=== PATIENT | female | born 1945 | race Caucasian/White ===

== ENCOUNTER 2019-10-15 21:22 | Observation (INO) | payer MEDICARE, MEDICAID, SELFPAY ==
[2019-10-15 21:33] VITALS: BP 147/85; PULSE 76; RESP 18; TEMP 36.9; O2SAT 98; BMI 25.4
--- NOTE | 2019-10-15 22:04 | PC.NURSE ---
PATIENT STATES THAT SHE HAS HAD CENTRAL CHEST PAIN, ABDOMINAL PAIN, AND NAUSEA WITH DIARRHEA SINCE YESTERDAY. PATIENT STATES THAT SHE TOOK ONE NITROGLYCERIN PILL TODAY IN THE AFTERNOON AND IT MADE THE CHEST WENT AWAY WITH THAT BUT IT HAS SINCE RETURNED.PATIENT STATES SHE HAS BEEN IN THE ER IN [place] FOR CHEST PAIN SYMPTOMS TWO MONTHS AGO.
[2019-10-15 22:06] VITALS: BP 122/74; PULSE 75; RESP 17; O2SAT 96
--- NOTE | 2019-10-15 22:07 | ED_ITS ---
Entered by Latoya Coelho, acting as scribe for Ben Stallworth DO Oct 15, 2019 21:22 HPI - Abdominal Pain General: Chief Complaint: Abdominal Pain Stated Complaint: cp/back pain/d Time Seen by Provider: 10/15/19 22:00 Source: patient and family Mode of arrival: ambulatory Limitations: no limitations History of Present Illness: HPI narrative: 74 yo female presents with abdomen pain and chest pressure. pt states this started 3 days ago. pt states she has had nausea and vomiting. pt has had a hx of a heart attack. pt denies any other symptoms at this time. MD elicited complaint: abdominal pain and other (chest , N/V/D) Pertinent past history: myocardial infarction Onset (ago): day(s) (today) Pain Consistency: constant Location: Chest and LUQ Quality: sharp Radiation: LUQ and LLQ Exacerbating factors: nothing Relieving factors: nothing Associated Symptoms: Reports chills, nausea and vomiting; Denies dysuria, fever(s) and hematuria Review of Systems General: Reports: 10 or more systems reviewed and unremarkable except in HPI and below Const: Reports: chills; Denies: fever Eyes: Denies: change in vision or blurry vision ENMT: Denies: painful swallowing, swelling of lips/tongue, post nasal drip or facial/sinus pain Resp: Reports: shortness of breath and non-productive cough; Denies: productive cough or wheezing GI: Reports: abdominal pain, nausea and vomiting : Denies: painful urination, urinary frequency or blood in urine Musc: Reports: back pain; Denies: neck pain, redness or joint warmth Skin/Breast: Denies: rash, itching or redness Neuro: Reports: confusion; Denies: headache, dizziness or vertigo Psych: Denies: anxiety PFSH ED PFSH: Medical History Anemia Breast cancer, right Depression Hypertension Syncope Surgical History H/O mastectomy History of appendectomy Family History (Updated 10/16/19 @ 02:10 by Mallory Gray MD) Sister Cancer Sister had breast cancer Social History (Updated 10/16/19 @ 03:55 by Mallory Gray MD) Smoking and tobacco status: former smoker Quit status (tobacco): has quit using tobacco Year quit tobacco: 12 to 15 years ago Alcohol intake: never Substance/Drug Use: never Household members: family Marital status: / Physical Exam Const: GENERAL APPEARANCE: well developed ORIENTATION/CONSCIOUSNESS: Yes oriented to person, Yes oriented to place and Yes oriented to time HENMT: COMMON NORMALS: normocephalic, external ears normal and external nose normal HEAD & SCALP: normocephalic; no scalp tenderness FACE & SINUS: normal facial exam NOSE: external nose normal and no nasal discharge EXTERNAL EAR: Yes external ears normal THROAT: posterior oropharynx normal; no peritonsillar mass Eye: COMMON NORMALS: PERRL, EOMs intact bilaterally and conjunctivae normal EYELID: eyelids normal CONJUNCTIVA: Yes conjunctivae normal PUPIL: Yes PERRL Neck/C-Spine: COMMON NORMALS: full ROM GENERAL: No tracheal deviation CERVICAL SPINE: Yes normal cervical lordosis and No cervical spine tenderness Chest: COMMONS NORMALS: inspection of chest normal CHEST: No tenderness Resp: COMMON NORMALS: clear to auscultation bilaterally EFFORT & INSPECTION: No tachypneic, No respiratory distress, No retractions, No uses accessory muscles and No tracheal deviation AUSCULTATION: clear to auscultation bilaterally, no rhonchi, no wheezes and diminished lung sounds GI: INSPECTION: Yes abdominal distension AUSCULTATION: No hyperactive bowel sounds and No hypoactive bowel sounds PALPATION: Yes tender Details: LLQ and LUQ PERCUSSION: no dullness to percussion and no tympanic to percussion : COMMON NORMALS: Yes no CVA tenderness BLADDER/KIDNEY EXAM: Yes no CVA tenderness Back/Pelvis: COMMON NORMALS: no CVA tenderness Neuro: SENSORIUM/ORIENTATION: Yes oriented to person, Yes oriented to place and Yes oriented to time Psych: COMMON NORMALS: mental status grossly normal Skin: COMMON NORMALS: no rashes or lesions noted GENERAL SKIN EXAM: no rashes or lesions noted Course Consultations: Consultation #1: lynn Vital Signs: Vital signs: Vital Signs Temperature 97.8 F 10/16/19 03:52 Pulse Rate 65 10/16/19 03:52 Respiratory Rate 18 10/16/19 03:52 Blood Pressure 129/77 10/16/19 03:52 Pulse Oximetry 98 10/16/19 03:52 MDM - Abdominal Pain MDM Narrative: Medical decision making narrative: 74-year-old lady presenting with chest pain, belly pain, back pain, vomiting and diarrhea. She is tender in the epigastrium and left abdomen. Her white blood cell count is low at 3.3. Her BUN and creatinine are elevated. She appears dry clinically. Her EKG showed some nonacute appearing ST elevation changes. Her troponin did not change at [address] shows gastric wall thickening, some fecalization in the small bowel. She will be observed for IV hydration for generalized weakness, dehydration, and gastritis. Lab Data: Labs: Lab Results 10/15/19 10/15/19 10/15/19 Range/Units 21:45 22:22 22:22 WBC 3.3 L (4.0-10.0) 10^3/ uL RBC 3.24 L (4.1-5.3) 10^6/u L Hgb 10.0 L (11.5-15.3) g/dL Hct 31.4 L (37.0-47.0) % MCV 96.9 (81-99) fL MCH 30.9 (28.0-34.0) pg MCHC 31.8 (30.0-36.0) g/dL RDW 12.3 (12.1-15.1) % Plt Count 145 (130-400) 10^3/c mm MPV 11.6 H (7.4-10.4) fL Neut % (Auto) 49.0 % Lymph % (Auto) 38.1 % Dickens % (Auto) 10.8 % Eos % (Auto) 1.5 % Baso % (Auto) 0.6 % Neut # (Auto) 1.6 L (1.8-7.7) 10^3/u L Lymph # (Auto) 1.3 (0.8-4.8) 10^3/u L Dickens # (Auto) 0.4 (0.2-0.9) 10^3/u L Eos # (Auto) 0.1 (0.0-0.8) 10^3/u L Baso # (Auto) 0.0 (0.0-0.1) 10^3/u L Nucleated RBC % (a uto) 0 % Nucleated RBCs # 0.0 /100WBC PT 13.60 H (10.5-13.3) SECO NDS INR 1.00 (0.8-1.2) APTT 28.2 (23.9-36.7) SECO NDS Sodium (136-145) mmol/L Potassium (3.5-5.1) mmol/L Chloride (98-107) mmol/L Carbon Dioxide (22-29) mmol/L Anion Gap (5-19) BUN (8-23) mg/dL Creatinine (0.5-0.9) mg/dL Glucose (65-115) mg/dL Calcium (8.5-10.5) mg/dL Total Bilirubin (0.15-1.2) mg/dL AST (0-32) U/L ALT (0-33) U/L Alkaline Phosphata se (35-105) IU/L Troponin T Baselin e (0-10) ng/mL Troponin T 120 Min osage (0-10) ng/mL Delta Troponin T (0-10) ABS# NT-Pro-B Natriuret Pep (0-125) pg/mL Total Protein (6.6-8.7) g/dL Albumin (3.5-5.2) g/dL Globulin (1.3-4.6) g/dL Lipase (13-60) U/L Urine Color (Yellow) Urine Appearance (CLEAR) Urine pH (5-7) Ur Specific Gravit y (1.005-1.030) Urine Protein (Negative) Urine Glucose (UA) (Normal) Urine Ketones (Negative) Urine Blood (Negative) Urine Nitrate (Negative) Urine Bilirubin (NEGATIVE) Urine Urobilinogen (Negative) mg/dL Ur Leukocyte Adela ase (Negative) Urine RBC (0-2) /hpf Urine WBC (0-5) /hpf Ur Squamous Epith Cells (0-5) Urine Bacteria (NONE) Influenza Type A A g Negative (Negative) POC Influenza B Ag Negative (Negative) 10/15/19 10/15/19 10/15/19 Range/Units 22:22 22:22 23:24 WBC (4.0-10.0) 10^3/ uL RBC (4.1-5.3) 10^6/u L Hgb (11.5-15.3) g/dL Hct (37.0-47.0) % MCV (81-99) fL MCH (28.0-34.0) pg MCHC (30.0-36.0) g/dL RDW (12.1-15.1) % Plt Count (130-400) 10^3/c mm MPV (7.4-10.4) fL Neut % (Auto) % Lymph % (Auto) % Dickens % (Auto) % Eos % (Auto) % Baso % (Auto) % Neut # (Auto) (1.8-7.7) 10^3/u L Lymph # (Auto) (0.8-4.8) 10^3/u L Dickens # (Auto) (0.2-0.9) 10^3/u L Eos # (Auto) (0.0-0.8) 10^3/u L Baso # (Auto) (0.0-0.1) 10^3/u L Nucleated RBC % (a uto) % Nucleated RBCs # /100WBC PT (10.5-13.3) SECO NDS INR (0.8-1.2) APTT (23.9-36.7) SECO NDS Sodium 141 (136-145) mmol/L Potassium 4.5 (3.5-5.1) mmol/L Chloride 103 (98-107) mmol/L Carbon Dioxide 25 (22-29) mmol/L Anion Gap 17.5 (5-19) BUN 37 H (8-23) mg/dL Creatinine 1.6 H (0.5-0.9) mg/dL Glucose 96 (65-115) mg/dL Calcium 10.0 (8.5-10.5) mg/dL Total Bilirubin 0.2 (0.15-1.2) mg/dL AST 35 H (0-32) U/L ALT 13 (0-33) U/L Alkaline Phosphata se 103 (35-105) IU/L Troponin T Baselin e 11 H (0-10) ng/mL Troponin T 120 Min osage (0-10) ng/mL Delta Troponin T (0-10) ABS# NT-Pro-B Natriuret Pep 552 H (0-125) pg/mL Total Protein 7.5 (6.6-8.7) g/dL Albumin 4.1 (3.5-5.2) g/dL Globulin 3.4 (1.3-4.6) g/dL Lipase 22 (13-60) U/L Urine Color Yellow (Yellow) Urine Appearance Clear (CLEAR) Urine pH 6 (5-7) Ur Specific Gravit y 1.020 (1.005-1.030) Urine Protein Neg (Negative) Urine Glucose (UA) Norm (Normal) Urine Ketones Negative (Negative) Urine Blood Neg (Negative) Urine Nitrate Negative (Negative) Urine Bilirubin Neg (NEGATIVE) Urine Urobilinogen Norm (Negative) mg/dL Ur Leukocyte Adela ase 1+ H (Negative) Urine RBC 0-4 H (0-2) /hpf Urine WBC 5-10 H (0-5) /hpf Ur Squamous Epith Cells 0-4 H (0-5) Urine Bacteria Trace (NONE) Influenza Type A A g (Negative) POC Influenza B Ag (Negative) 10/16/19 Range/Units 00:14 WBC (4.0-10.0) 10^3/ uL RBC (4.1-5.3) 10^6/u L Hgb (11.5-15.3) g/dL Hct (37.0-47.0) % MCV (81-99) fL MCH (28.0-34.0) pg MCHC (30.0-36.0) g/dL RDW (12.1-15.1) % Plt Count (130-400) 10^3/c mm MPV (7.4-10.4) fL Neut % (Auto) % Lymph % (Auto) % Dickens % (Auto) % Eos % (Auto) % Baso % (Auto) % Neut # (Auto) (1.8-7.7) 10^3/u L Lymph # (Auto) (0.8-4.8) 10^3/u L Dickens # (Auto) (0.2-0.9) 10^3/u L Eos # (Auto) (0.0-0.8) 10^3/u L Baso # (Auto) (0.0-0.1) 10^3/u L Nucleated RBC % (a uto) % Nucleated RBCs # /100WBC PT (10.5-13.3) SECO NDS INR (0.8-1.2) APTT (23.9-36.7) SECO NDS Sodium (136-145) mmol/L Potassium (3.5-5.1) mmol/L Chloride (98-107) mmol/L Carbon Dioxide (22-29) mmol/L Anion Gap (5-19) BUN (8-23) mg/dL Creatinine (0.5-0.9) mg/dL Glucose (65-115) mg/dL Calcium (8.5-10.5) mg/dL Total Bilirubin (0.15-1.2) mg/dL AST (0-32) U/L ALT (0-33) U/L Alkaline Phosphata se (35-105) IU/L Troponin T Baselin e (0-10) ng/mL Troponin T 120 Min osage 9.31 (0-10) ng/mL Delta Troponin T -1.69 L (0-10) ABS# NT-Pro-B Natriuret Pep (0-125) pg/mL Total Protein (6.6-8.7) g/dL Albumin (3.5-5.2) g/dL Globulin (1.3-4.6) g/dL Lipase (13-60) U/L Urine Color (Yellow) Urine Appearance (CLEAR) Urine pH (5-7) Ur Specific Gravit y (1.005-1.030) Urine Protein (Negative) Urine Glucose (UA) (Normal) Urine Ketones (Negative) Urine Blood (Negative) Urine Nitrate (Negative) Urine Bilirubin (NEGATIVE) Urine Urobilinogen (Negative) mg/dL Ur Leukocyte Adela ase (Negative) Urine RBC (0-2) /hpf Urine WBC (0-5) /hpf Ur Squamous Epith Cells (0-5) Urine Bacteria (NONE) Influenza Type A A g (Negative) POC Influenza B Ag (Negative) Discharge Plan Discharge Admit Provider: Mallory Gray Discharge Date/Time: 10/16/19 03:08 Coding Level of Care Code ED Application Dba for g Fwd Exam Comprehensive The documentation recorded by the Meliton shafer Bridget Annette, accurately reflects the service I personally performed and the decisions made by Basim vazquez Jeremy John, DO Oct 15, 2019 21:22
--- NOTE | 2019-10-15 22:13 | ECG_ITS ---
Measurements Intervals [place] Rate: 72 P: 49 TN: 144 QRS: -17 QRSD: 112 T: 117 QT: 386 QTc: 424 SINUS RHYTHM MODERATE VOLTAGE CRITERIA FOR LVH, CONSIDER NORMAL VARIANT [MEETS CRITERIA IN ONE OF: OF: R(aVL), S(V1), R(V5), R(V5/V6)+S(V1)] POSSIBLE ANTEROSEPTAL MYOCARDIAL INFARCTION [30 ms Q WAVE IN V1-V4], OF IND INDETERMINATE AGE.MODERATE T-WAVE ABNORMALITY, CONSIDER LATERAL ISCHEMIA [-0.1+ mV T WAVE IN I/ I/aVL/V5/V6] Compared to ECG 08/25/2017 19:05:26 T-wave abnormality now presentSinus bradycardia no longer present ST (T wave) deviation no longer present Myocardial infarct finding still present Possible ischemia still present Electronically Signed On 10-16-2019 19:58:57 VETERINARY TECHNOLOGIST by Myrna Hsieh M.D. [id number]
--- NOTE | 2019-10-15 22:13 | XRR_ITS ---
PROCEDURE INFORMATION: Exam: XR Chest, 1 View Exam date and time: 10/15/2019 10:28 PM Age: 74 years old Clinical indication: Chest pain; Type not specified; Additional info: Cp TECHNIQUE: Imaging protocol: XR of the chest Views: 1 view. COMPARISON: CR Chest 1 [place] [id number] 04/15/2019 11:35 PM FINDINGS: Lungs: Unremarkable. No consolidation. Pleural space: Unremarkable. No pleural effusion. No pneumothorax. Heart/Mediastinum: Unremarkable. No cardiomegaly. Bones/joints: Old right rib fractures XR/XR chest 1V portable [id number] IMPRESSION: Stable chest. No acute findings.
--- NOTE | 2019-10-15 22:13 | CTR_ITS ---
PROCEDURE INFORMATION: Exam: CT Abdomen And Pelvis With Contrast Exam date and time: 10/15/2019 10:23 PM Age: 74 years old Clinical indication: Abdominal pain; Generalized; Prior surgery; Surgery date: 6+ months; Surgery type: Appy; Patient HX: C/O abd pain w nausea and diarrhea x 32 days; Additional info: Llq pain TECHNIQUE: Imaging protocol: Computed tomography of the abdomen and pelvis with intravenous contrast. Total DLP: 588.32 mGy-cm Radiation optimization: All CT scans at this facility use at least one of these dose optimization techniques: automated exposure control; mA and/or kV adjustment per patient size (includes targeted exams where dose is matched to clinical indication); or iterative reconstruction. Contrast material: VISI 320; Contrast volume: 95 ml; Contrast route: 20G; COMPARISON: CT abdomen pelvis w con* [id number] 01/30/2017 3:08 AM FINDINGS: Lungs: There is subpleural atelectasis of the dependent portions of the lungs. Heart: The heart is enlarged. Mediastinum: A small hiatal hernia is present. Liver: Unremarkable.No mass. Gallbladder and bile ducts: The gallbladder is contracted/decompressed. Pancreas: Normal. No ductal dilation. Spleen: There is mild nonspecific splenomegaly. Adrenals: Normal. No mass. Kidneys and ureters: There is no evidence of hydronephrosis. There is no evidence of renal calcifications. There is unchanged atrophy of the right kidney. Stomach and bowel: Moderate diverticulosis is present in the distal colon. There is no evidence of colitis/diverticulitis. There is a mild small bowel feces sign of the distal small bowel compatible with stasis. No bowel obstruction. No definite wall thickening or inflammatory changes. The gastric wall is mildly thickened but is also partially collapsed in the appearance is compatible with lack of distension. Appendix: No evidence of appendicitis. Intraperitoneal space: Unremarkable. No free air. No significant fluid collection. Vasculature: The aorta demonstrates mild atherosclerotic calcification. Lymph nodes: Unremarkable.No enlarged lymph nodes. Bladder: Unremarkable as visualized. Reproductive: Unremarkable as visualized. Bones/joints: Osteopenia and moderate degenerative changes in the spine are noted. Multiple vacuum discs are noted. No acute fracture or subluxation. There is dextroscoliosis. Soft tissues: Unremarkable. CT/CT abdomen pelvis w con* [id number] IMPRESSION: No acute abnormality or inflammatory changes. There is small bowel feces sign in the distal small bowel which indicates stasis. No bowel obstruction. Radiation Dose CTDIVOL = (mGy): DLP = 588.32 (mGy-cm)
[2019-10-15 22:29] LABS: Influenza A by IFA Negative (Negative); Influenza B by IFA Negative (Negative)
[2019-10-15] MEDS: sodium chloride 0.9% 1,000 ML 999 ML IV (22:30)
[2019-10-15 22:32] VITALS: BP 137/80; PULSE 68; RESP 17; O2SAT 96
[2019-10-15 22:40] LABS: Basophils % 0.6 %; Eosinophils # 0.1 10^3/uL (0.0-0.8); Eosinophils % 1.5 %; Hematocrit 31.4 % (37.0-47.0); Lymphocytes # 1.3 10^3/uL (0.8-4.8); Lymphocytes % 38.1 %; Mean Corpuscular HGB Conc 31.8 g/dL (30.0-36.0); Mean Corpuscular Hemoglobin 30.9 pg (28.0-34.0); Mean Corpuscular Volume 96.9 fL (81-99); Mean Platelet Volume 11.6 fL (7.4-10.4); Monocytes # 0.4 10^3/uL (0.2-0.9); Monocytes % 10.8 %; Neutrophils # 1.6 10^3/uL (1.8-7.7); Nucleated Red Blood Cells % 0 %; Platelet Count 145 10^3/cmm (130-400); Red Blood Count 3.24 10^6/uL (4.1-5.3); Red Cell Distribution Width 12.3 % (12.1-15.1); White Blood Count 3.3 10^3/uL (4.0-10.0)
[2019-10-15 22:55] LABS: Partial Thromboplastin Time 28.2 SECONDS (23.9-36.7)
[2019-10-15 23:11] LABS: Troponin(5th) Baseline 11 ng/mL (0-10)
[2019-10-15] MEDS: ondansetron 2 mg/ML SDV 2 mL 4 MG IVP (23:19)
[2019-10-15 23:20] VITALS: RESP 16; O2SAT 97
[2019-10-15 23:20] LABS: Alanine Aminotransferase 13 U/L (0-33); Albumin Level 4.1 g/dL (3.5-5.2); Alkaline Phosphatase 103 IU/L (35-105); Anion Gap 17.5 (5-19); Aspartate Amino Transferase 35 U/L (0-32); Blood Urea Nitrogen 37 mg/dL (8-23); Carbon Dioxide 25 mmol/L (22-29); Chloride 103 mmol/L (98-107); Globulin 3.4 g/dL (1.3-4.6); Glucose 96 mg/dL (65-115); NT Pro B Type Natriuretic Pept 552 pg/mL (0-125); Potassium 4.5 mmol/L (3.5-5.1); Sodium 141 mmol/L (136-145); Total Bilirubin 0.2 mg/dL (0.15-1.2); Total Protein 7.5 g/dL (6.6-8.7)
[2019-10-15] MEDS: morphine 4 mg/mL SDV 1 mL IVP (23:20)
[2019-10-15 23:23] VITALS: BP 175/99; PULSE 78; RESP 16; O2SAT 95
[2019-10-15] MEDS: iodixanol 320 mg/mL 100mL Btl IV (23:30)
[2019-10-15 23:49] LABS: Lipase 22 U/L (13-60)
[2019-10-15 23:50] VITALS: BP 165/93; PULSE 72; RESP 16; O2SAT 95
[2019-10-16] VITALS (15 sets, daily range): BP systolic 113–165; BP diastolic 68–85; PULSE 60–82; RESP 12–18; TEMP 36.6–37; O2SAT 93–99
[2019-10-16 00:02] LABS: Add Urine Microscopic? YES; Bilirubin Urine Neg (NEGATIVE); Blood Urine Neg (Negative); Glucose Urine UA Norm (Normal); Ketones Urine Negative (Negative); Leukocyte Esterase Urine 1+ (Negative); Nitrate Urine Negative (Negative); Protein Urine Neg (Negative); Urine Appearance Clear (CLEAR); Urine Color Yellow (Yellow); Urobilinogen Urine Norm (Negative); pH Urine 6 (5-7)
[2019-10-16 00:03] LABS: Bacteria Urine TRACE; RBC Urine 0-4 /hpf (0-2); Squamous Epithelial Cell Urine 0-4 (0-5)
--- NOTE | 2019-10-16 00:13 | ECG_ITS ---
Measurements Intervals [place] Rate: 71 P: 51 NM: 161 QRS: -5 QRSD: 114 T: 110 QT: 409 QTc: 447 SINUS RHYTHM LEFT VENTRICULAR HYPERTROPHY AND ST-T CHANGE [VOLTAGE CRITERIA PLUS ST/T ABNO ABNORMALITY] POSSIBLE ANTERIOR MYOCARDIAL INFARCTION , OF INDETERMINATE AGE [30 ms Q WAVE IN V3/V4, OR R < 0.2 mV IN V4] INTERPRETATION BASED ON A DEFAULT AGE OF 40 YEARS Compared to ECG 08/25/2017 19:05:26 Left ventricular hypertrophy now present Sinus bradycardia no longer present Possible ischemia no longer present ST (T wave) deviation still present Myocardial infarct finding still present Electronically Signed On 10-16-2019 20:04:38 OUTBOUND SALES CONSULTANT by Myrna Hsieh M.D. [id number]
[2019-10-16 00:42] LABS: Troponin 5 2HR 9.31 ng/mL (0-10)
[2019-10-16 00:52] LABS: Troponin 5 2HR Delta -1.69 ABS# (0-10)
--- NOTE | 2019-10-16 02:07 | PM.HP ---
Providers/Chief Complaint Primary Care Provider: EMELI Luke Chief Complaint: cp/back pain/d History of Present Illness Negin Lee is a 74 year old female who has history of hypertension, right breast cancer, presented to the emergency department with chief complaint of left-sided chest discomfort. Patient is stating that her symptoms started yesterday at rest which were substernal chest discomfort on the left side which was radiating towards her left arm, it lasted for more than 5 minutes and got relieved with use of nitroglycerin sublingually. Today she experienced similar symptoms and she took another dose of sublingual nitroglycerin which relieved her symptoms hence she decided to come to ER for further evaluation. She also experienced 4-5 episodes of emesis bilious in nature, associated with diarrhea without any fever, chills, neurological deficit. No recent sick contacts, traveling etc. Patient is not aware of her medications. She is independent for daily activities, she is denying orthopnea, PND. Diagnostics in ER were unremarkable, nonsignificant troponin, EKG did not show any acute ischemic changes, patient was admitted for fluid resuscitation overnight, 6-hour troponin is pending When I evaluated the patient she was symptom-free, asymptomatic, blood pressure 157/70, heart rate 80, patient was lying comfortable without any active discomfort Her chest pain was reproducible on left side Review of Systems Const: Reports: body aches; Denies: fever or chills Eyes: Denies: change in vision ENMT: Denies: throat pain Card: Reports: chest pain; Denies: palpitations, irregular heart rhythm, edema, swelling of feet/ankles, lightheadedness or syncope Resp: Denies: shortness of breath or non-productive cough GI: Reports: abdominal pain, nausea and vomiting; Denies: vomiting blood, coffee grounds in vomit, difficulty swallowing, heartburn/indigestion or feeling full early : Denies: flank pain or difficulty urinating Musc: Denies: neck pain Skin/Breast: Denies: rash Neuro: Denies: headache Psych: Reports: anxiety Endo: Denies: excessive urination Sylvester/Lymph: Denies: easy bruising All/Imm: Denies: hives Medications/Allergies Home Medications Medication Instructions Recorded Confirmed Last Taken Type No Known Home Medications 10/16/19 10/16/19 Unknown History Allergies Allergy/AdvReac Type Severity Reaction Status Date / Time No Known Allergies Allergy Verified 10/15/19 21:39 PFSH Acute PFSH: Medical History Anemia Breast cancer, right Depression Hypertension Syncope Surgical History H/O mastectomy History of appendectomy Family History (Updated 10/16/19 @ 02:10 by Mallory Gray MD) Sister Cancer Sister had breast cancer Social History (Updated 10/16/19 @ 03:55 by Mallory Gray MD) Smoking and tobacco status: former smoker Quit status (tobacco): has quit using tobacco Year quit tobacco: 12 to 15 years ago Alcohol intake: never Substance/Drug Use: never Household members: family Marital status: / Vitals/I&O/Wt Last Vital Signs Temp 98.4 F 10/15/19 21:33 Pulse 80 10/16/19 02:01 Resp 16 10/16/19 02:01 BP 165/77 10/16/19 02:01 Pulse Ox 96 10/16/19 02:01 10/15/19 10/15/19 10/16/19 14:59 22:59 06:59 Intake Total 1000 / 1000 Balance 1000 / 1000 Weight last 48 hrs Weight 61.235 kg Physical Exam Narrative: EXAM NARRATIVE: Elderly female lying comfortable in her bed Saturating well on room air EOMI, PERRLA S1, S2 no signs of JVD or heart failure, reproducible left-sided chest pain Abdomen soft nontender nondistended bowel sound present Neurological nonfocal exam, alert oriented x3 GCS 15, Skin does not show any sign of ulcer Extremity does not show any signs of ischemia gangrene, cyanosis Skull atraumatic normocephalic Data : 10/15/19 22:22 10/15/19 22:22 A&P Assessment and plan (1) Hypertension: Status: Acute Code(s): I10 - Essential (primary) hypertension (2) Epigastric abdominal pain: Status: Acute Code(s): R10.13 - Epigastric pain Additional A&P Information She has multiple risk factors for coronary disease such as hypertension, age, history of smoking, family history, history of cancer Considering 48-hour period of chest pain troponin rise is not significant, no active ischemic change on EKG, her chest discomfort however seems typical because of the following criteria, substernal, relieved with nitro, lasting more than 10 minutes, radiating towards left arm, Currently hemodynamically she is stable, She would definitely benefit from a cardiac stress test if that could be done on outpatient setting Decision was made to admit the patient and observe overnight to watch for any development of complications and recurrence of chest pain, use GI cocktail, I would also rule out pulmonary embolism because of history of cancer, I would screen her with d-dimer first Dehydration secondary to nausea and vomiting IV fluid resuscitation with normal saline for now CT scan of abdomen did not show any acute findings High BNP without active signs of heart failure Normocytic anemia: No active signs of bleeding, will check FOBT Constipation I would use senna S Hypertension: Patient is not familiar with her medications for now I would use amlodipine 10 mg, avoid use of lisinopril because of abnormal creatinine however it seems to be around baseline 1.5 DVT prophylaxis: Heparin Cardiac diet Full code Attestations Medical Necessity Statement*: Anticipating discharge in less than 48 hours after ruling out cardiac cause of chest discomfort Time Spent in Patient Care: 50 Coding Level of Care Code Acute Die Cast Patternmaker for g Fwd Diagnoses Hypertension I10 Epigastric abdominal pain R10.13
--- NOTE | 2019-10-16 02:35 | PC.NURSE ---
HOSPITALIST IN ROOM WITH PATIENT
[2019-10-16] MEDS: morphine 4 mg/mL SDV 1 mL 2 MG IVP (03:52)
[2019-10-16] MEDS: nitroglycerin 0.4 mg sublingual Tablet SUBLINGUAL ×3 (03:53→09:02)
[2019-10-16] MEDS: heparin 5,000 unit/mL INJ 1 mL 5000 UNIT SUBCUT (03:54)
--- NOTE | 2019-10-16 04:13 | ECG_ITS ---
Measurements Intervals [place] Rate: 55 P: 52 MI: 162 QRS: -14 QRSD: 110 T: 116 QT: 427 QTc: 412 SINUS BRADYCARDIA LEFT VENTRICULAR HYPERTROPHY AND ST-T CHANGE [VOLTAGE CRITERIA PLUS ST/T ABNORMALITY] Compared to ECG 08/25/2017 19:05:26 Left ventricular hypertrophy now present Possible ischemia no longer present Myocardial infarct finding no longer present ST (T wave) deviation still present Electronically Signed On 10-16-2019 20:05:02 NUT FORMER by Myrna Hsieh M.D. [id number]
[2019-10-16] MEDS: lidocaine 2% viscous 15 ML, aluminum-mag hydrox-simethicon 30 ML, sucralfate oral liq 1 GM PO (04:34)
[2019-10-16] MEDS: sodium chloride 0.9% 1,000 ML 75 ML IV (04:37)
[2019-10-16 05:09] LABS: Troponin 5 6HR 9.88 ng/mL (0-10)
[2019-10-16 05:10] LABS: Troponin 5 6HR Delta -1.12 ng/L (0-12)
[2019-10-16 05:59] LABS: Basophils % 0.6 %; Eosinophils # 0.1 10^3/uL (0.0-0.8); Eosinophils % 2.4 %; Hematocrit 31.9 % (37.0-47.0); Hemoglobin 10.5 g/dL (11.5-15.3); Lymphocytes # 1.4 10^3/uL (0.8-4.8); Lymphocytes % 41.3 %; Mean Corpuscular HGB Conc 32.9 g/dL (30.0-36.0); Mean Corpuscular Hemoglobin 32.4 pg (28.0-34.0); Mean Corpuscular Volume 98.5 fL (81-99); Mean Platelet Volume 12.3 fL (7.4-10.4); Monocytes # 0.5 10^3/uL (0.2-0.9); Monocytes % 14.2 %; Neutrophils # 1.4 10^3/uL (1.8-7.7); Neutrophils % 41.2 %; Nucleated Red Blood Cells % 0 %; Platelet Count 88 10^3/cmm (130-400); Red Blood Count 3.24 10^6/uL (4.1-5.3); Red Cell Distribution Width 12.3 % (12.1-15.1); White Blood Count 3.3 10^3/uL (4.0-10.0)
[2019-10-16 06:19] LABS: Alanine Aminotransferase 10 U/L (0-33); Albumin Level 3.7 g/dL (3.5-5.2); Alkaline Phosphatase 89 IU/L (35-105); Anion Gap 12.9 (5-19); Aspartate Amino Transferase 28 U/L (0-32); Blood Urea Nitrogen 28 mg/dL (8-23); Calcium 9.5 mg/dL (8.5-10.5); Carbon Dioxide 24 mmol/L (22-29); Chloride 104 mmol/L (98-107); Globulin 3.4 g/dL (1.3-4.6); Glucose 112 mg/dL (65-115); Potassium 3.9 mmol/L (3.5-5.1); Sodium 137 mmol/L (136-145); Total Bilirubin 0.3 mg/dL (0.15-1.2); Total Protein 7.1 g/dL (6.6-8.7)
[2019-10-16 06:58] LABS: Thyroid Stimulating Hormone 2.02 uIU/mL (0.27-4.20)
--- NOTE | 2019-10-16 08:52 | ECG_ITS ---
Measurements Intervals [place] Rate: 65 P: 50 [place]: 163 QRS: -19 QRSD: 112 T: 131 QT: 432 QTc: 451 SINUS RHYTHM LEFT VENTRICULAR HYPERTROPHY AND ST-T CHANGE [VOLTAGE CRITERIA PLUS ST/T AB ABNORMALITY] Compared to ECG 08/25/2017 19:05:26 Left ventricular hypertrophy now present Sinus bradycardia no longer present Possible ischemia no longer present Myocardial infarct finding no longer present ST (T wave) deviation still present Electronically Signed On 10-16-2019 19:59:55 PROPERTY UTILIZATION OFFICER by Myrna Hsieh M.D. [id number]
[2019-10-16] MEDS: sennosides-docusate Tablet 1 TAB PO ×2 (09:02→18:24)
[2019-10-16] MEDS: amlodipine 10 mg Tablet PO (09:02)
[2019-10-16] MEDS: polyethylene glycol 3350 Pkt 17 gm PO (09:03)
--- NOTE | 2019-10-16 09:31 | USCV_ITS ---
Negin Lee Age: 74 Gender: F : 1945 Exam Date: 10/16/2019 10:29 Ordering Phys: Tremaine Reece MD Technologist: Lucia Pandya [place] [facility] [place]: Chest pain BP: 137 / 85 HR: 57 Rhythm: Sinus Bradycardia Technical Quality: Adequate MEASUREMENTS (Male / Female) Normal Values 2D ECHO LV Diastolic Diameter PLAX 3.9 cm 4.2 - 5.9 / 3.9 - 5.3 cm LV Systolic Diameter PLAX 2.8 cm LV Chamber Size 3.7 cm IVS Diastolic Thickness 1.7 cm 0.6 - 1.0 / 0.6 - 0.9 cm IVS Systolic Thickness 1.7 cm LVPW Diastolic Thickness 1.1 cm 0.6 - 1.0 / 0.6 - 0.9 cm LVPW Systolic Thickness 1.5 cm RV Chamber Size 2.7 cm LVOT Diameter 2.0 cm LV Ejection Fraction 2D Teich 56.3 % LV Ejection Fraction MOD 2C 58.0 % LV Ejection Fraction 2C AL 57.7 % LA Diameter 3.2 cm LA Width 3.5 cm LA Height 4.2 cm RA Width 3.6 cm RA Height 4.6 cm Aorta at Sinotubular Diameter 3.0 cm M-MODE LV Diastolic Diameter MM 3.9 cm 4.2 - 5.9 / 3.9 - 5.3 cm LV Systolic Diameter MM 2.9 cm LV Ejection Fraction MM Teich 52.8 % IVS Diastolic Thickness MM 1.8 cm 0.6 - 1.0 / 0.6 - 0.9 cm IVS Systolic Thickness MM 1.8 cm LVPW Diastolic Thickness MM 1.1 cm 0.6 - 1.0 / 0.6 - 0.9 cm LVPW Systolic Thickness MM 1.5 cm RV Diastolic Diameter MM 1.6 cm Aortic Annulus Diameter 3.4 cm LA Ao Ratio MM 1.0 MV E Point Septal Separation 0.3 cm DOPPLER AV Peak Velocity 129.0 cm/s LVOT Peak Velocity 101.0 cm/s AV Area Cont Eq vti 2.4 cm squared AV Area Cont Eq pk 2.3 cm squared MV Area PHT 3.5 cm squared Mitral E to A Ratio 1.0 MV E' Velocity 8.0 cm/s Mitral E to MV E' Ratio 15.3 Mitral E to LV E' Lateral Ratio 12.7 Mitral E to LV E' Septal Ratio 19.5 TR Peak Velocity 256.0 cm/s TR Peak Gradient 26.3 mmHg TR Mean Velocity 215.0 cm/s TR Mean Gradient 19.2 mmHg TR Velocity Time Integral 93.2 cm TV Peak E Velocity 47.0 cm/s Right Atrial Pressure 8.0 mmHg Pulmonary Artery Systolic Pressu 34.2 mmHg PV Peak Velocity 84.0 cm/s RV Acceleration Time 0.1 s RV Ejection Time 0.3 s RV AcT/ET 0.3 FINDINGS Left Ventricle Normal left ventricular size and systolic function, EF 55 %. No regional wall motion abnormalities. Moderate concentric left ventricular hypertrophy. Grade I/IV diastolic dysfunction (abnormal relaxation filling pattern), normal to mildly elevated filling pressures. Right Ventricle The right ventricle is normal in size and function. Right Atrium The right atrium is normal in size. Left Atrium The left atrium is normal in size. Mitral Valve Trace mitral valve regurgitation. Aortic Valve Trace aortic valve regurgitation. Tricuspid Valve Mild tricuspid valve regurgitation. Estimated pulmonary artery peak systolic pressure 34 mmHg Pulmonic Valve Structurally normal pulmonic valve without significant stenosis. There is no pulmonic regurgitation. Pericardium Normal pericardium without effusion. Aorta Normal ascending aorta dimension. CONCLUSIONS Normal left ventricular size and systolic function, EF 55 %. No regional wall motion abnormalities. Moderate concentric left ventricular hypertrophy. Grade I/IV diastolic dysfunction (abnormal relaxation filling pattern), normal to mildly elevated filling pressures. Trace of aortic and mitral valve regurgitation. Mild tricuspid valve regurgitation. Estimated pulmonary artery peak systolic pressure 34 mmHg. There is no pericardial effusion. There are no intracardiac masses. No previous study is available for comparison. Dr Myrna Hsieh MD FAC (Electronically Signed) Final Date: 16 October 2019 13:32 S
[2019-10-16] MEDS: aspirin 325 mg EC Tablet PO (09:52)
[2019-10-16] MEDS: pantoprazole DR 40 mg Tablet PO ×2 (09:52→18:24)
[2019-10-16] MEDS: enoxaparin 60 mg/0.6 mL Syringe SUBCUT ×2 (09:52→21:12)
[2019-10-16] MEDS: nitroglycerin 1 gm/inch oint Pkt 0.5 INCH TOPICAL ×3 (09:52→21:12)
--- NOTE | 2019-10-16 13:08 | PM.CONSULT ---
Providers/Reason For Consult Consulting Physican/Specialty*: HARRY Hsieh MD/cardiology Reason for Consult*: Patient with chest pain and elevated BNP Attending Physician: Tremaine Reece MD Primary Care Provider: EMELI Luke History of Present Illness History of Present Illness Negin Lee is a 74 year old female with a history of essential benign hypertension, is admitted to the hospital through the emergency room, where she presented with complaints of nausea vomiting diarrhea and chest pain. This patient is a very poor historian. According the family(her daughter) patient has been having some nausea vomiting and diarrhea for the last 3 days or so. Last evening, she started complaining of chest pain. The pain was in the upper chest, moderate to severe intensity. She did not have any associated palpitation or dizziness. She was feeling weak the whole day. She also has been under a lot of stress because of some issues with her boyfriend. According the patient, she felt like going to pass out. 1 of her friends at home caught hold of her and avoided a fall. Never had any complete loss of consciousness. No seizure activity. No bladder or bowel incontinence. She had at least 2 ER visits in the past with a more or less similar symptoms of syncope/near syncope. Both times it were induced with some type of stress. She has no documented arrhythmias. She also has a history of chest pain off and on for the last few years. She had a myocardial perfusion imaging in 2014. She never had a cardiac catheterization. She has no history for any CVA or peripheral arterial disease. The CTA of the chest in 2017 revealed ectasia of the ascending aorta measuring 4.0 cm. At the time of my examination, patient is complaining of some discomfort in the chest which has been persistent for the last couple of days. She has no other associated symptoms. She had the nausea, vomiting and loose bowel movements for the last 3 days or so. She has no associated fever or chills. No hematemesis, hematochezia or melena. Review of Systems Narrative: CONSTITUTIONAL: No fever or chills. EYES: No blurring of vision or other visual disturbances lately. ENT: No hoarseness of voice, auditory disturbances or sore throat. CARDIOVASCULAR: As mentioned above. RESPIRATORY: No significant cough. GASTROINTESTINAL: As mentioned above GENITOURINARY: Stage III kidney disease INTEGUMENTARY: No skin rashes or history of skin cancer. NEURO: Recurrent syncope/near syncope PSYCHIATRIC: No history of psychosis or major depression. HEMATOLOGIC: Mild chronic anemia ENDOCRINE: No history of polyuria or polydipsia. MUSCULOSKELETAL: No recent joint pain or swelling. ALLERGY/IMMUNOLOGY: As mentioned above. Meds/Allergies Home Medications and Allergies Allergies Allergy/AdvReac Type Severity Reaction Status Date / Time No Known Allergies Allergy Verified 10/15/19 21:39 Current Medications Current Medications Generic Name Dose Route Start Last Admin Trade Name Freq PRN Reason Stop Dose Admin Amlodipine Besylate 10 mg 10/16/19 09:00 10/16/19 09:02 Norvasc PO 10 mg DAILY KIN Administration Aspirin 325 mg 10/16/19 09:30 10/16/19 09:52 Aspirin Ec PO 325 mg DAILY KIN Administration Enoxaparin Sodium 60 mg 10/16/19 10:00 10/16/19 09:52 Lovenox SUBCUT 60 mg Q12H KIN Administration Morphine Sulfate 2 mg 10/16/19 03:24 10/16/19 03:52 Morphine IVP 2 mg Q4H PRN Administration SEVERE PAIN Nitroglycerin 0.4 mg 10/16/19 03:41 10/16/19 09:02 Nitrostat SUBLINGUAL 0.4 mg Q5M PRN Administration CHEST PAIN Nitroglycerin 0.5 inch 10/16/19 09:30 10/16/19 09:52 Nitro-Bid TOPICAL 0.5 inch Q6H KIN Administration Pantoprazole Sodium 40 mg 10/16/19 09:30 10/16/19 09:52 Protonix PO 40 mg BID KIN Administration Polyethylene Glycol 17 gm 10/16/19 09:00 10/16/19 09:03 Miralax PO 17 gm DAILY KIN Administration Senna/Docusate Sodium 1 tab 10/16/19 09:00 10/16/19 09:02 Senna-S PO 1 tab BID KIN Administration PFSH Acute PFSH: Medical History Acute diastolic heart failure Anemia Aortic ectasia, thoracic Atypical chest pain Benign essential hypertension with target blood pressure below 140/90 Breast cancer, right Depression Hypertension Recurrent syncope Syncope Surgical History H/O mastectomy History of appendectomy Family History Sister Cancer Sister had breast cancer Social History Smoking and tobacco status: former smoker Quit status (tobacco): has quit using tobacco Year quit tobacco: 12 to 15 years ago Alcohol intake: never Household members: family Marital status: / Vitals/I&O/Wt Last Vital Signs Temp 98.1 F 10/16/19 10:54 Pulse 82 10/16/19 10:54 Resp 18 10/16/19 10:54 BP 132/78 10/16/19 10:54 Pulse Ox 95 10/16/19 10:54 10/15/19 10/16/19 10/16/19 22:59 06:59 14:59 Intake Total 1120 / 1120 360 / 360 Balance 1120 / 1120 360 / 360 Weight last 48 hrs Weight 135 lb Physical Exam Narrative: EXAM NARRATIVE: GENERAL: The patient is alert and oriented x2. Not in acute distress. HEENT: No significant pallor, icterus or lymphadenopathy. The pupils are symmetrical. Oral cavity: There are no mucous membrane lesions. Fundus is not visualized. NECK: Trachea appears to be central. No masses noted. No JVD or thyromegaly appreciated. No carotid bruit. RESPIRATORY: Chest is symmetrical. No intercostals muscle retraction or any accessory muscle activation. There is no chest wall tenderness. Breath sounds are heard bilaterally. No rales or rhonchi heard. No evidence of any consolidation. BREASTS: Deferred. HEART: The PMI is in the 5th left intercostals space just inside the midclavicular line. No palpable precordial events. S1 and S2 are normal. No S3 or S4 heard. No pericardial rub or any click heard. Short systolic murmur in the left sternal border. No diastolic murmurs. ABDOMEN: Vague tenderness in the epigastric area. No organomegaly appreciated. Bowel sounds are normally heard. No palpable mass : Deferred. RECTAL: Deferred. LYMPHATIC: No lymphadenopathy noted in the neck . EXTREMITIES: No edema or cyanosis. Peripheral pulses are palpable but weak bilaterally in the lower extremities. MUSCULOSKELETAL: No acute joint deformities or swelling. SKIN: There are no significant scars or skin rash noted. NEUROPSYCHIATRIC: The patient is alert and oriented x3. Appears to be in a good mood. The higher functions are grossly within normal limits. No tremors or rigidity noted. Data Labs: Other Labs: Abnormal lab results 10/15/19 10/15/19 10/15/19 Range/Units 22:22 22:22 22:22 WBC 3.3 L (4.0-10.0) 10^3/ uL RBC 3.24 L (4.1-5.3) 10^6/u L Hgb 10.0 L (11.5-15.3) g/dL Hct 31.4 L (37.0-47.0) % Plt Count (130-400) 10^3/c mm MPV 11.6 H (7.4-10.4) fL Neut # (Auto) 1.6 L (1.8-7.7) 10^3/u L PT 13.60 H (10.5-13.3) SECO NDS BUN 37 H (8-23) mg/dL Creatinine 1.6 H (0.5-0.9) mg/dL AST 35 H (0-32) U/L Troponin I Hi Sens Del (0-12) ng/L Troponin T Baselin e (0-10) ng/mL Delta Troponin T (0-10) ABS# NT-Pro-B Natriuret Pep 552 H (0-125) pg/mL Ur Leukocyte Adela ase (Negative) Urine RBC (0-2) /hpf Urine WBC (0-5) /hpf Ur Squamous Epith Cells (0-5) 10/15/19 10/15/19 10/16/19 Range/Units 22:22 23:24 00:14 WBC (4.0-10.0) 10^3/ uL RBC (4.1-5.3) 10^6/u L Hgb (11.5-15.3) g/dL Hct (37.0-47.0) % Plt Count (130-400) 10^3/c mm MPV (7.4-10.4) fL Neut # (Auto) (1.8-7.7) 10^3/u L PT (10.5-13.3) SECO NDS BUN (8-23) mg/dL Creatinine (0.5-0.9) mg/dL AST (0-32) U/L Troponin I Hi Sens Del (0-12) ng/L Troponin T Baselin e 11 H (0-10) ng/mL Delta Troponin T -1.69 L (0-10) ABS# NT-Pro-B Natriuret Pep (0-125) pg/mL Ur Leukocyte Adela ase 1+ H (Negative) Urine RBC 0-4 H (0-2) /hpf Urine WBC 5-10 H (0-5) /hpf Ur Squamous Epith Cells 0-4 H (0-5) 10/16/19 10/16/19 10/16/19 Range/Units 04:37 05:40 05:40 WBC 3.3 L (4.0-10.0) 10^3/ uL RBC 3.24 L (4.1-5.3) 10^6/u L Hgb 10.5 L (11.5-15.3) g/dL Hct 31.9 L (37.0-47.0) % Plt Count 88 L (130-400) 10^3/c mm MPV 12.3 H (7.4-10.4) fL Neut # (Auto) 1.4 L (1.8-7.7) 10^3/u L PT (10.5-13.3) SECO NDS BUN 28 H (8-23) mg/dL Creatinine 1.2 H (0.5-0.9) mg/dL AST (0-32) U/L Troponin I Hi Sens Del -1.12 L (0-12) ng/L Troponin T Baselin e (0-10) ng/mL Delta Troponin T (0-10) ABS# NT-Pro-B Natriuret Pep (0-125) pg/mL Ur Leukocyte Adela ase (Negative) Urine RBC (0-2) /hpf Urine WBC (0-5) /hpf Ur Squamous Epith Cells (0-5) Imaging^: CXR: My impression: Borderline cardiac silhouette with no lung infiltrate. Unfolding of the aorta. No acute pathology noted. CT Abd/Pel: Radiologist's impression: No acute abnormalities noted. EKG^: EKG 1: My Interpretation: Normal sinus rhythm with a left axis deviation. Voltage criteria for LVH. Poor R wave progression. Nonspecific ST-T changes. A&P Assessment and plan (1) Atypical chest pain: Patient chest pain is very atypical. She has improvement of the chest pain with the sublingual nitroglycerin. The EKG changes are nonspecific. No evidence of myocardial injury. She had a myocardial perfusion imaging in 2015. There was no evidence of ischemia. The transit ischemic dilatation ratio was slightly elevated. Status: Acute Code(s): R07.89 - Other chest pain (2) Acute diastolic heart failure: Most likely the patient has hypertensive heart disease. Her recurrent episodes of nausea and vomiting could be a contributing factor. I may go down to a repeat myocardial perfusion imaging, to further evaluate her symptoms and decide on further management Status: Acute Code(s): I50.31 - Acute diastolic (congestive) heart failure (3) Benign essential hypertension with target blood pressure below 140/90: Her blood pressure was a stage II at the time of admission. Currently the blood pressure seems to be getting under control. Status: Acute Code(s): I10 - Essential (primary) hypertension (4) Epigastric abdominal pain: Etiology of abdominal pain is not clear at this time. She has a history of abdominal pain off and on. This may need to be further evaluated. Status: Acute Code(s): R10.13 - Epigastric pain (5) Recurrent syncope: The etiology of the recurrent syncope/near syncope is unclear at this time. It seems to be precipitated with a stress. Vasovagal reaction is a consideration. Some form of cardiac arrhythmia causing this also is a consideration. She needs to be closely monitored on telemetry. Consider event monitor at the time of discharge. Status: Acute Code(s): R55 - Syncope and collapse (6) Aortic ectasia, thoracic: Her ascending aorta was measuring 4.0 cm by CTA in 2017. This may need to be reevaluated. Status: Acute Code(s): I77.810 - Thoracic aortic ectasia Additional A&P Information After reviewing the results of the above tests and also based on the patient's clinical progress, further recommendations will be made. Thank you for the opportunity to evaluate this patient and make these recommendations Coding Level of Care Code Acute Arresting Gear Operator for Chg Fwd History Comprehensive Exam Comprehensive Medical Decision Making Moderate Complexity Diagnoses Atypical chest pain R07.89 Acute diastolic heart failure I50.31 Benign essential hypertension with target blood pressure below 140/90 I10 Epigastric abdominal pain R10.13 Recurrent syncope R55 Aortic ectasia, thoracic I77.810 Time Spent (min) 55
--- NOTE | 2019-10-16 14:00 | P.PN_ITS ---
Subjective Subjective: Interval history: Negin reports she had some recurrent chest discomfort this morning. She stated that was substernal, radiating to her left arm. It was somewhat sharp in nature. This was relieved with nitroglycerin. History and physical was reviewed. Medications: Reviewed: Yes Vitals/I&O/Wt Last Vital Signs Temp 98.1 F 10/16/19 10:54 Pulse 82 10/16/19 10:54 Resp 18 10/16/19 10:54 BP 132/78 10/16/19 10:54 Pulse Ox 95 10/16/19 10:54 10/15/19 10/16/19 10/16/19 22:59 06:59 14:59 Intake Total 1120 / 1120 360 / 360 Balance 1120 / 1120 360 / 360 Weight last 48 hrs Weight 61.235 kg Physical Exam Narrative: EXAM NARRATIVE: General exam is no apparent distress Cardiovascular regular in rhythm without murmur Lungs clear Abdomen is soft positive bowel sounds Extremities no cyanosis clubbing or edema Data : 10/16/19 05:40 10/16/19 05:40 A&P Assessment and plan (1) Chest pain: Troponin is negative but patient has had recurrent chest pain. EKG is not completely normal with flipped T waves laterally. This does appear significantly more prominent than prior EKGs in the past. Will consult cardiology Full dose anticoagulation Aspirin Nitroglycerin ointment Status: Acute Code(s): R07.9 - Chest pain, unspecified Additional A&P Information Vomiting, resolved Mild pancytopenia. Check anemia panel, stool Hemoccult but suspect myelodysplasia Acute kidney injury, resolving history of hypertension History of breast cancer with mastectomy Multiple other medical problems as outlined in past medical history Attestations Medical Necessity Statement*: Needs continued hospital stay, secondary to recurrent chest discomfort. At this point may remain observation. Coding Level of Care Code Acute Botanical Technical Officer for Mary Melendrez Diagnoses Chest pain R07.9
[2019-10-16 14:42] LABS: Ferritin 74 ng/mL (15-150); Iron 51 ug/dL (37-145); Percent Saturation 24.7 % (20-50); Total Iron Binding Capacity 206 mcg/dl; Unsaturated Iron Binding 155 ug/dL (112-347)
[2019-10-16 14:58] LABS: Vitamin B12 392 pg/mL (232-1245)
[2019-10-16 15:26] LABS: Folate Level 19.2 ng/mL (4.8-37.3)
--- NOTE | 2019-10-16 18:34 | ECG_ITS ---
NAME OF STUDY: LEXISCAN SESTAMIBI STRESS TEST INDICATION: Chest Pain PROCEDURE: At the baseline, the EKG revealed normal sinus rhythm with a poor R wave progression. Nonspecific IVCD. Minimal left axis deviation. Diffuse nonspecific ST-T changes. The baseline blood pressure was 154/89 mm Hg with a heart rate of 61 beats/min. Lexiscan was infused over a period of 20 seconds. A total of 0.4 milligrams of Lexiscan was infused. The stress phase was continued for a total of 5 minutes. Heart rate at the end of the stress phase was 121 with a blood pressure 235/125. The EKG at the peak infusion revealed no significant changes. Sestamibi was injected 20 seconds after the Lexiscan infusion. Blood pressure at the end of the recovery phase was 156/101 with a heart rate of 81 per minute. CONCLUSION: 1. No significant EKG changes with the LexiScan infusion 2. No LexiScan induced chest pain or cardiac arrhythmia 3. Normal blood pressure and heart rate response 4. Sestamibi/sestamibi perfusion scan pending; see separate report. Electronically Signed On 10-21-2019 15:54:01 EBAY RESELLER by Myrna Hsieh M.D. [email or web address]
[2019-10-17] VITALS (7 sets, daily range): BP systolic 107–145; BP diastolic 67–86; PULSE 66–100; RESP 12–18; TEMP 36.4–36.7; O2SAT 94–98
[2019-10-17] MEDS: acetaminophen 325 mg Tablet 650 MG PO (00:02)
[2019-10-17 05:03] LABS: Basophils % 0.7 %; Eosinophils # 0.1 10^3/uL (0.0-0.8); Eosinophils % 3.7 %; Hemoglobin 9.7 g/dL (11.5-15.3); Lymphocytes # 1.2 10^3/uL (0.8-4.8); Lymphocytes % 44.6 %; Mean Corpuscular HGB Conc 32.3 g/dL (30.0-36.0); Mean Corpuscular Hemoglobin 31.6 pg (28.0-34.0); Mean Corpuscular Volume 97.7 fL (81-99); Mean Platelet Volume 11.7 fL (7.4-10.4); Monocytes # 0.3 10^3/uL (0.2-0.9); Monocytes % 10.8 %; Neutrophils # 1.1 10^3/uL (1.8-7.7); Neutrophils % 40.2 %; Nucleated Red Blood Cells % 0 %; Platelet Count 113 10^3/cmm (130-400); Red Blood Count 3.07 10^6/uL (4.1-5.3); Red Cell Distribution Width 12.2 % (12.1-15.1); White Blood Count 2.7 10^3/uL (4.0-10.0)
[2019-10-17 05:21] LABS: Alanine Aminotransferase 10 U/L (0-33); Albumin Level 3.6 g/dL (3.5-5.2); Alkaline Phosphatase 83 IU/L (35-105); Anion Gap 12.6 (5-19); Aspartate Amino Transferase 26 U/L (0-32); Blood Urea Nitrogen 29 mg/dL (8-23); Calcium 9.8 mg/dL (8.5-10.5); Carbon Dioxide 25 mmol/L (22-29); Chloride 105 mmol/L (98-107); Globulin 3.5 g/dL (1.3-4.6); Glucose 98 mg/dL (65-115); Potassium 3.6 mmol/L (3.5-5.1); Sodium 139 mmol/L (136-145); Total Bilirubin 0.4 mg/dL (0.15-1.2); Total Protein 7.1 g/dL (6.6-8.7)
--- NOTE | 2019-10-17 06:00 | NMCV_ITS ---
NM bill perf SPECT r/s* [id number] Negin Lee Age: 74 Gender: F : 1945 Exam Date: 10/17/2019 07:10 Ordering Phys: Myrna Hsieh MD ([email or web address]) Technologist: PADMA Sheffield Exam Location: [facility] Indications: CP/BACK PAIN STRESS TEST [facility] IMAGE PROTOCOL Rest/Stress 1 Lexiscan Day Radiopharmaceutical Dose (mCi) Administration Site Administered by Rest: Tc-99m 11.0 IV PADMA Sheffield Sestamibi Stress:Tc-99m 32.7 IV PADMA Pathak Sestamibi Rest: 17-Oct-2019 60 Discovery 630 Stress: 17-Oct-2019 30 Discovery 630 0.4mg Lexiscan. Images obtained in supine and prone position. SPECT RESULTS Technical Quality: Excellent Raw Data Analysis: Normal Image Corrections: No attenuation or motion correction applied Summed Stress Score: 0 Summed Rest Score: 0 Summed Difference Score: 0 PERFUSION FINDINGS Small area of slightly decreased tracer uptake was noted in the anteroseptal regions. No significant reversibility was noted in this region. FUNCTIONAL RESULTS (calculated via Gated SPECT) Stress Image LV EF (%): 62 Stress EDV (mL):82 TID: 0.87 Stress ESV (mL):31 FUNCTIONAL FINDINGS: Segmental wall motion analysis revealing no gross wall motion normalities. IMPRESSIONS #1. Myocardial perfusion imaging revealing small areas of slightly decreased persistent tracer uptake in the anteroseptal region, suggestive of myocardial scarring versus attenuation artifact. #2. Normal LV ejection fraction 62%. #3. LV wall motion analysis revealing no gross wall motion normalities. #4. Normal LV volume. No significant coronary ischemia, based on the above findings Dr Myrna Hsieh MD FACC (Electronically Signed) Final Date: 17 October 2019 13:52 S
[2019-10-17] MEDS: regadenoson 0.4 Mg/5 ml Syringe IVP (07:52)
[2019-10-17] MEDS: aminophylline 25 mg/mL SDV 10 mL IVP (08:01)
[2019-10-17] MEDS: polyethylene glycol 3350 Pkt 17 gm PO (10:05)
[2019-10-17] MEDS: sennosides-docusate Tablet 1 TAB PO (10:06)
[2019-10-17] MEDS: amlodipine 10 mg Tablet PO (10:07)
[2019-10-17] MEDS: aspirin 325 mg EC Tablet PO (10:07)
[2019-10-17] MEDS: pantoprazole DR 40 mg Tablet PO (10:07)
[2019-10-17] MEDS: nitroglycerin 1 gm/inch oint Pkt 0.5 INCH TOPICAL (10:08)
[2019-10-17] MEDS: enoxaparin 60 mg/0.6 mL Syringe SUBCUT (10:11)
[2019-10-17] MEDS: ondansetron 2 mg/ML SDV 2 mL 4 MG IVP (11:35)
--- NOTE | 2019-10-17 14:57 | PM.DCS ---
Discharge Providers Date of Admission: 10/16/19 02:39 Date of Discharge: October 17, 2019 Attending Provider at Admission: Mallory Gray MD Attending Provider at Discharge: Yarelis Jung MD Primary Care Provider: EMELI Luke Diagnoses at Discharge Discharge Diagnosis (1) Atypical chest pain: Status: Acute (2) Acute diastolic heart failure: Status: Acute (3) Benign essential hypertension with target blood pressure below 140/90: Status: Acute (4) Epigastric abdominal pain: Status: Acute (5) Recurrent syncope: Status: Acute (6) Aortic ectasia, thoracic: Status: Acute Reason for Visit Reason for Visit: Reason For Visit: cp/back pain/d Hospital Course Discharge Summary: 74 year old female with a history of essential benign hypertension, is admitted to the hospital through the emergency room, where she presented with complaints of nausea vomiting diarrhea and chest pain. The pain was in the upper chest, moderate to severe intensity. She did not have any associated palpitation or dizziness. She had at least 2 ER visits in the past with a more or less similar symptoms of syncope/near syncope. Both times it were induced with some type of stress. She has no documented arrhythmias. She also has a history of chest pain off and on for the last few years. Serial troponins were negative. Cardiology was consulted. She underwent a cardiac stress test today which reports no evidence of ischemia at this time time. She feels well today, denies any further c/o chest pain. No Nausea or vomiting today , want to return home. An event monitor is being arranged at discharge to r/o possibility of underlying arrhthymias as a cause of recurrent syncopal/pre syncopal episodes. 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 Discharge Data Data Completed and Pending: Completed Studies During Hospitalization Category Date Time Status CT abdomen pelvis w con* [id number] Urge nt Cat Scan 10/15/19 22:13 Completed XR chest 1V farida ble [id number] Stat Exams 10/15/19 22:13 Completed NM blil perf SPECT r/s* [id number] Routin e Nuc Med 10/17/19 06:00 Completed CV echo complete* [id number] Routine Ultrasound 10/16/19 09:31 Completed Pending at discharge Category Date Time Status Sestamibi Stress Test Request Isela ne Exams 10/16/19 18:34 Ordered Immunochemical Fe tristan OCB Routine Lab 10/16/19 14:05 Uncollected Labs from last 24 hours 10/17/19 10/17/19 10/16/19 04:17 04:17 14:35 WBC 2.7 L RBC 3.07 L Hgb 9.7 L Hct 30.0 L MCV 97.7 MCH 31.6 MCHC 32.3 RDW 12.2 Plt Count 113 L MPV 11.7 H Neut % (Auto) 40.2 Lymph % (Auto) 44.6 Bradley % (Auto) 10.8 Eos % (Auto) 3.7 Baso % (Auto) 0.7 Neut # (Auto) 1.1 L Lymph # (Auto) 1.2 Bradley # (Auto) 0.3 Eos # (Auto) 0.1 Baso # (Auto) 0.0 Nucleated RBC % (a uto) 0 Nucleated RBCs # 0.0 Sodium 139 Potassium 3.6 Chloride 105 Carbon Dioxide 25 Anion Gap 12.6 BUN 29 H Creatinine 1.1 H Glucose 98 Calcium 9.8 Total Bilirubin 0.4 AST 26 ALT 10 Alkaline Phosphata se 83 Total Protein 7.1 Albumin 3.6 Globulin 3.5 Vitamin B12 Folate 19.2 10/16/19 04:30 WBC RBC Hgb Hct MCV MCH MCHC RDW Plt Count MPV Neut % (Auto) Lymph % (Auto) Bradley % (Auto) Eos % (Auto) Baso % (Auto) Neut # (Auto) Lymph # (Auto) Bradley # (Auto) Eos # (Auto) Baso # (Auto) Nucleated RBC % (a uto) Nucleated RBCs # Sodium Potassium Chloride Carbon Dioxide Anion Gap BUN Creatinine Glucose Calcium Total Bilirubin AST ALT Alkaline Phosphata se Total Protein Albumin Globulin Vitamin B12 392 Folate Vitals: Last Vital Signs Temp 97.8 F 10/17/19 14:55 Pulse 78 10/17/19 14:55 Resp 18 10/17/19 14:55 BP 129/68 10/17/19 14:55 Pulse Ox 96 10/17/19 14:55 Discharge Plan Discharge Patient Disposition: Home, Self-Care Condition: Stable Prescriptions: New amlodipine 10 mg Tablet 10 mg PO DAILY 30 Days Qty: 30 RF: 0 sennosides-docusate sodium 8.6-50 mg Tablet 1 tab PO BID Qty: 0 RF: 0 polyethylene glycol 3350 [Miralax] 17 gram Powder In Packet 17 g PO DAILY Qty: 0 RF: 0 pantoprazole 40 mg Tablet,Delayed Release (Dr/Ec) 40 mg PO DAILY 30 Days Qty: 30 RF: 0 No Action No Known Home Medications RF: 0 Discharge Orders: Discharge Order (Routine); Ordered 10/17/19 Ordered By: Yarelis Jung Other Ambulatory Orders: CA cardiac event monitor (Routine) Timeframe: 1 Day Facility: [facility] - Location: Cardiac Diagnostic Laboratory Ordered By: Yarelis Jung Referrals: Myrna Hsieh MD [Physician] - 11/02/19 3:15 pm Nannette Alcantara FNP [Primary Care Provider] - 10/25/19 10:00 am Discharge Diet: Usual diet Discharge Activity: Resume usual activity Patient Instructions: Laxative, Stimulant (By mouth), Amlodipine (By mouth), Pantoprazole (By mouth), Polyethylene Glycol 3350 (By mouth), Hypertension, Heart Failure (DC), Abdominal Aortic Aneurysm (DC), CHF Stoplight Discharge Attestations Time Spent in Discharge Care*: greater than 30 min Quality Metrics Clinical Quality Measures During this hospital stay, did patient experience: None Coding Level of Care Code Acute Adult And Pediatric Neurologist for [facility] Fwd Diagnoses Atypical chest pain R07.89 Acute diastolic heart failure I50.31 Benign essential hypertension with target blood pressure below 140/90 I10 Epigastric abdominal pain R10.13 Recurrent syncope R55 Aortic ectasia, thoracic I77.810
--- NOTE | 2019-10-17 17:53 | PM.PN ---
Subjective Subjective: Interval history: Patient has not had any chest pain or syncopal episodes, since hospital admission. Her vital signs remained stable. She underwent a myocardial perfusion imaging today. She was found to have no evidence of ischemia. Medications: Reviewed: Yes Vitals/I&O/Wt Last Vital Signs Temp 98.1 F 10/17/19 15:29 Pulse 66 10/17/19 15:29 Resp 16 10/17/19 15:29 BP 127/72 10/17/19 15:29 Pulse Ox 96 10/17/19 15:29 10/17/19 10/17/19 10/17/19 06:59 14:59 22:59 Intake Total 0 / 920 840 / 840 Balance 0 / 920 840 / 840 Weight last 48 hrs Weight 154 lb 6 oz Weight 135 lb Physical Exam Narrative: EXAM NARRATIVE: GENERAL: The patient is alert and oriented x2. Not in acute distress. HEENT: No significant pallor, icterus or lymphadenopathy. The pupils are symmetrical. Oral cavity: There are no mucous membrane lesions. NECK: Trachea appears to be central. No masses noted. No JVD or thyromegaly appreciated. No carotid bruit. RESPIRATORY: Chest is symmetrical. No intercostals muscle retraction or any accessory muscle activation. There is no chest wall tenderness. Breath sounds are heard bilaterally. No rales or rhonchi heard. No evidence of any consolidation. BREASTS: Deferred. HEART: The PMI is in the 5th left intercostals space just inside the midclavicular line. No palpable precordial events. S1 and S2 are normal. No S3 or S4 heard. No pericardial rub or any click heard. Short systolic murmur in the left sternal border. No diastolic murmurs. ABDOMEN: Vague tenderness in the epigastric area. No organomegaly appreciated. Bowel sounds are normally heard. No palpable mass : Deferred. RECTAL: Deferred. LYMPHATIC: No lymphadenopathy noted in the neck . EXTREMITIES: No edema or cyanosis. Peripheral pulses are palpable but weak bilaterally in the lower extremities. MUSCULOSKELETAL: No acute joint deformities or swelling. SKIN: There are no significant scars or skin rash noted. NEUROPSYCHIATRIC: The patient is alert and oriented x3. Appears to be in a good mood. The higher functions are grossly within normal limits. No tremors or rigidity noted. Data : 10/17/19 04:17 10/17/19 04:17 A&P Assessment and plan (1) Atypical chest pain: Since the patient has no evidence of ischemia, based on the perfusion scan, she may not require any further investigation at this time. Status: Acute Code(s): R07.89 - Other chest pain (2) Acute diastolic heart failure: Currently the heart failure is compensated. May continue on the current medications. Status: Acute Code(s): I50.31 - Acute diastolic (congestive) heart failure (3) Benign essential hypertension with target blood pressure below 140/90: Currently the blood pressure is within normal limits. Patient may continue on the current medications. Status: Acute Code(s): I10 - Essential (primary) hypertension (4) Epigastric abdominal pain: Work-up as per the primary. Status: Acute Code(s): R10.13 - Epigastric pain (5) Recurrent syncope: The etiology of the recurrent syncope/near syncope is unclear at this time. It seems to be precipitated with a stress. Vasovagal reaction is a consideration. Some form of cardiac arrhythmia causing this also is a consideration. She needs to be closely monitored on telemetry. Patient may go home with an event monitor. Status: Acute Code(s): R55 - Syncope and collapse (6) Aortic ectasia, thoracic: Her ascending aorta was measuring 4.0 cm by CTA in 2017. This may need to be reevaluated. Status: Acute Code(s): I77.810 - Thoracic aortic ectasia Additional A&P Information Since the patient's cardiovascular status seems to be remaining stable, she may not require any further investigations at this time. If she is going to be discharged home today, may go home with an event monitor. I may see her back in the office in 3 weeks. 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
== END 2019-10-17 15:30 | disposition home or self-care (01) ==
LOC: ER 23:38 → MEDSURG 10-16 02:56
PROVIDERS: Emergency Medicine; Internal Medicine; Admitting Provider Internal Medicine; Emergency Provider Emergency Medicine; Family Provider Family Medicine; PCP Nurse Practitioner; Visit Provider Student in an Organized Health Care Education/Training Program
DX: R07.89 Other chest pain (principal); R10.13 Epigastric pain; I11.0 Hypertensive heart disease with heart failure; I50.31 Acute diastolic (congestive) heart failure; I77.810 Thoracic aortic ectasia; Z85.3 Personal history of malignant neoplasm of breast; Z90.10 Acquired absence of unspecified breast and nipple; Z87.891 Personal history of nicotine dependence; R55 Syncope and collapse
CPT/HCPCS: 12345; 36415; 71045; 74177; 78452; 80053; 81001; 82607; 82728; 82746; 83540; 83550; 83690; 83880; 84443; 84484; 85025; 85378; 85610; 85730; 87804; 93005; 93017; 93306; 96360; 96361; 96372; 96374; 96375; 96376; 99284; 99285; A9500; G0378; J0280; J1644; J1650; J2270; J2405; J2785; J7030; Q9967

== ENCOUNTER 2019-10-15 21:22 | Emergency (ER) | payer MEDICARE, MEDICAID, SELFPAY | END 2019-10-16 03:08 | disposition admitted as inpatient to this hospital (09) | LOC: ER 11-14 11:44 | PROVIDERS: Emergency Provider Emergency Medicine; Family Provider Family Medicine; PCP Nurse Practitioner | DX: R07.9 Chest pain, unspecified (principal); R53.1 Weakness; E86.0 Dehydration; K29.70 Gastritis, unspecified, without bleeding; F32.9 Major depressive disorder, single episode, unspecified; I10 Essential (primary) hypertension; Z85.3 Personal history of malignant neoplasm of breast; Z87.891 Personal history of nicotine dependence | CPT/HCPCS: 12345; 71045; 74177; 80053; 83690; 83880; 84484; 85025; 85610; 85730; 87804; 93005; 96361; 96374; 96375; 96376; 99284; 99285; J2270; J2405; J7030; Q9967 ==

== ENCOUNTER 2020-04-09 19:37 | Emergency (ER) | payer MEDICARE, MEDICAID, SELFPAY ==
[2020-04-09 19:38] VITALS: BMI 26.4
[2020-04-09 19:42] VITALS: BP 124/68; PULSE 81; RESP 16; TEMP 36.8; O2SAT 95
--- NOTE | 2020-04-09 19:52 | XRR_ITS ---
PROCEDURE INFORMATION: Exam: XR Right Shoulder Exam date and time: 04/09/2020 8:12 PM Age: 74 years old Clinical indication: Injury or trauma; Fall; Initial encounter; Blunt trauma (contusions or hematomas; Shoulder; Right; Injury date: 04/09/20 TECHNIQUE: Imaging protocol: XR Right shoulder. Views: 2 or more views. COMPARISON: No relevant prior studies available. FINDINGS: Bones/joints: Fracture mid aspect right clavicle with a full shaft with displacement. Question mild diastasis of the acromioclavicular joint. 7 mm. Degenerative changes within the acromioclavicular joint. Old rib fractures on the right laterally. Soft tissues: Normal. XR/XR shoulder RT min 2V* [id number] IMPRESSION: 1. Fracture mid aspect right clavicle with a full shaft with displacement. 2. Question mild diastasis of the acromioclavicular joint. 7 mm. Degenerative changes within the acromioclavicular joint.
--- NOTE | 2020-04-09 19:52 | CTR_ITS ---
PROCEDURE INFORMATION: Exam: CT Head Without Contrast Exam date and time: 04/09/2020 8:18 PM Age: 74 years old Clinical indication: Injury or trauma; Fall; Additional info: Fall, pain TECHNIQUE: Imaging protocol: Computed tomography of the head without contrast. Radiation optimization: All CT scans at this facility use at least one of these dose optimization techniques: automated exposure control; mA and/or kV adjustment per patient size (includes targeted exams where dose is matched to clinical indication); or iterative reconstruction. COMPARISON: CT head wo con* [id number] 04/15/2019 11:43 PM RADIATION DOSE METRICS: Total DLP (mGy-cm): 709 FINDINGS: Brain: There is volume loss and periventricular low density compatible with chronic small vessel disease changes. There is no acute hemorrhage, edema or mass effect. Ventricles: Normal. No ventriculomegaly. Bones/joints: Unremarkable. No acute fracture. Sinuses: Visualized sinuses are unremarkable. No fluid levels. Mastoid air cells: Visualized mastoid air cells are well aerated. Soft tissues: Unremarkable. CT/CT head wo con* [id number] IMPRESSION: No acute intracranial abnormality. Radiation Dose CTDIVOL = (mGy): DLP = 709 (mGy-cm)
--- NOTE | 2020-04-09 19:53 | CTR_ITS ---
PROCEDURE INFORMATION: Exam: CT Cervical Spine Without Contrast Exam date and time: 04/09/2020 8:18 PM Age: 74 years old Clinical indication: Injury or trauma; Fall; Initial encounter; Blunt trauma; Additional info: Fall, pain TECHNIQUE: Imaging protocol: Computed tomography images of the cervical spine without contrast. Radiation optimization: All CT scans at this facility use at least one of these dose optimization techniques: automated exposure control; mA and/or kV adjustment per patient size (includes targeted exams where dose is matched to clinical indication); or iterative reconstruction. COMPARISON: No relevant prior studies available. RADIATION DOSE METRICS: Total DLP (mGy-cm): 419.75 FINDINGS: Vertebrae: No acute fracture. Normal alignment. There is osteopenia with moderate degenerative changes. Discs/Spinal canal/Neural foramina: No significant disc protrusion. No severe spinal canal stenosis. No significant neural foraminal narrowing. Soft tissues: Unremarkable. Thyroid: The thyroid gland is enlarged and heterogeneous compatible with probable goiter. Lungs: Mild left apical scarring versus pneumonitis. The right lung apex is clear. There are moderate emphysematous changes. CT/CT cervical spin wo con* [id number] IMPRESSION: No acute findings. Radiation Dose CTDIVOL = (mGy): DLP = 419.75 (mGy-cm)
--- NOTE | 2020-04-09 19:53 | ECG_ITS ---
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 Measurements Intervals [place] Rate: 72 P: 57 CT: 160 QRS: -16 QRSD: 121 T: 101 QT: 406 QTc: 446 Interpretive Statements SINUS RHYTHM LEFT VENTRICULAR HYPERTROPHY AND ST-T CHANGE [VOLTAGE CRITERIA PLUS ST/T ABNORMALITY] POSSIBLE ANTERIOR MYOCARDIAL INFARCTION , OF INDETERMINATE AGE [30 ms Q WAVE IN V3/V4, OR R < 0.2 mV IN V4] Compared to ECG 10/16/2019 08:57:50 Myocardial infarct finding now present ST (T wave) deviation still present Electronically Signed On 04-10-2020 17:25:30 CDT by Mallory Rodriguez M.D. [email or web address]ologies[id number]
--- NOTE | 2020-04-09 20:33 | W.ED.FALL ---
HPI - Fall General: Chief Complaint: Fall Stated Complaint: FALL Time Seen by Provider: 04/09/20 19:39 History of Present Illness: HPI Narrative: This patient is a 74-year-old female who fell in the shower. She thinks she just lost her balance. She does not think she passed out although she has had a history of passing out in the past. She fell onto the right side and hit her head on the wall. She said she injured her neck when she fell and also her right shoulder. She denies any other injuries. She does not think she had a loss of consciousness. complaint: fall Onset (ago): hour(s) (1) Fall from: standing Fall witnessed: no Place fall occurred: home Loss of consciousness: None Prolonged down time: no Location of injury: head and neck Location of injury - extremities: Right: shoulder Severity scale (1-10): 10 Quality: sharp Associated symptoms-after fall: Reports no associated symptoms and headache(s); Denies vertigo Review of Systems General: Reports: 10 or more systems reviewed and unremarkable except in HPI and below Const: Denies: fever(s) Resp: Denies: dyspnea Neuro: Reports: headache(s); Denies: dizziness or vertigo PFSH ED PFSH: Medical History Acute diastolic heart failure Anemia Aortic ectasia, thoracic Atypical chest pain Benign essential hypertension with target blood pressure below 140/90 Breast cancer, right Depression Hypertension Recurrent syncope Syncope Surgical History H/O mastectomy History of appendectomy Family History Sister Cancer Sister had breast cancer Social History Smoking and tobacco status: former smoker Quit status (tobacco): has quit using tobacco Year quit tobacco: 12 to 15 years ago Alcohol intake: never Household members: family Marital status: / Physical Exam Const: COMMON NORMALS: no acute distress, patient oriented x3, no limitations and alert GENERAL APPEARANCE: cooperative HENMT: HEAD & SCALP: normal to inspection FACE & SINUS: normal facial exam Eye: GENERAL EYE: appearance normal, both eyes and all related structures Neck/C-Spine: COMMON NORMALS: supple, no meningeal signs and no JVD Chest: COMMONS NORMALS: normal inspection of the chest CHEST: Yes other (Tenderness over the clavicle on the right) Resp: COMMON NORMALS: normal respiratory effort, No use of accessory muscles and clear to auscultation bilaterally AUSCULTATION: clear to auscultation bilaterally Cardio: COMMON NORMALS: no JVD, regular rate, regular rhythm and No murmurs present (Cardio) RATE: regular rate RHYTHM: regular rhythm GI: COMMON NORMALS: Normal to inspection, nondistended, normoactive bowel sounds present, Soft to palpation and non-tender INSPECTION: Yes normal to inspection AUSCULTATION: Yes normoactive bowel sounds PALPATION: Yes Soft to palpation Back/Pelvis: COMMON NORMALS: thoracic and lumbar spine normal to inspection Extremity: GENERAL: Yes normal exam except as noted RIGHT UPPER EXTREMITY: Yes shoulder joint (Tenderness, no deformity) and Yes clavicle (Tenderness, deformity) OTHER: Pulses and sensation intact in the right upper extremity. Neuro: COMMON NORMALS: patient oriented x3, moves all extremities, no focal motor deficits and no sensory deficits noted SENSORIUM/ORIENTATION: Yes alert MENINGEAL SIGNS: Yes no meningeal signs Psych: COMMON NORMALS: mental status grossly normal, cooperative and normal affect Skin: COMMON NORMALS: no rashes or lesions noted and turgor normal GENERAL SKIN EXAM: no rashes or lesions noted and turgor normal Course ED course: CT head and C-spine negative. X-rays of the right shoulder show a midshaft clavicle fracture with displacement and overlap. Patient was given some pain medicine without relief. She was given another dose and put in a sling and will be discharged home. She has several of her adult children at home who can help her with ADLs. She was given orthopedic follow-up. Her EKG shows a left bundle branch block which is unchanged from priors. Vital Signs: Vital signs: Vital Signs Temperature 98.2 F 04/09/20 19:42 Pulse Rate 84 04/09/20 21:29 Respiratory Rate 14 04/09/20 21:29 Blood Pressure 143/87 04/09/20 21:30 Pulse Oximetry 96 04/09/20 21:29 Discharge Plan Discharge Patient Disposition: Home Clinical Impression: Fall Qualifiers: Encounter type: initial encounter Qualified Code(s): W19.XXXA - Unspecified fall, initial encounter Clavicle fracture, shaft Qualifiers: Encounter type: initial encounter Fracture type: closed Fracture alignment: displaced Laterality: right Qualified Code(s): S42.021A - Displaced fracture of shaft of right clavicle, initial encounter for closed fracture Cervical muscle strain Qualifiers: Encounter type: initial encounter Qualified Code(s): S16.1XXA - Strain of muscle, fascia and tendon at neck level, initial encounter Condition: Stable Prescriptions: New oxycodone 5 mg tablet 5 mg PO Q4H PRN (Reason: pain) Qty: 20 RF: 0 No Action Miralax 17 gram Powder In Packet 17 g PO DAILY Qty: 0 RF: 0 sennosides-docusate sodium 8.6-50 mg Tablet 1 tab PO BID Qty: 0 RF: 0 Discharge Orders: Discharge Order (Routine); Ordered 04/09/20 Ordered By: Jackie Greene Referrals: Maciej Jaime [Family Provider] - Nannette Alcantara FNP [Primary Care Provider] - Kalina Rosales MD [Physician] - 4-7 days Discharge Diet: Usual diet Discharge Activity: Resume usual activity Patient Instructions: Clavicle Fracture (ED), Fall Prevention for Older Adults (ED) Discharge Date/Time: 04/09/20 22:18 Coding Level of Care Code ED Capacity Planner for Mary Fwtj Exam Comprehensive
[2020-04-09 20:40] VITALS: RESP 18; O2SAT 95
[2020-04-09] MEDS: oxyCODONE 5 mg IR Tab/Cap PO (20:40)
[2020-04-09 21:22] VITALS: RESP 20; O2SAT 100
[2020-04-09] MEDS: HYDROmorphone 1 mg/mL INJ 1 mL 0.5 MG IVP (21:22)
[2020-04-09 21:29] VITALS: PULSE 84; RESP 14; O2SAT 96
[2020-04-09 21:30] VITALS: BP 143/87
--- NOTE | 2020-04-10 08:58 | DCPLANNER ---
manager diesel had message to schedule a follow up appointment for patient with ortho. manager diesel called the ortho clinic, spoke with Pat, gave clinic patients information. manager diesel was told that patients information would be printed and reviewed. Clinic will call patient with appointment information.
--- NOTE | 2020-04-12 16:53 | DCPLANNER ---
Patient had a follow up appointment scheduled for 04.10.20 with ortho - patient did attend the appointment.
== END 2020-04-09 22:18 | disposition home or self-care (01) ==
PROVIDERS: Emergency Provider Emergency Medicine; Family Provider Family Medicine; PCP Nurse Practitioner
DX: S42.021A Displaced fracture of shaft of right clavicle, initial encounter for closed fracture (principal); S16.1XXA Strain of muscle, fascia and tendon at neck level, initial encounter; W18.2XXA Fall in (into) shower or empty bathtub, initial encounter; I11.0 Hypertensive heart disease with heart failure; I50.31 Acute diastolic (congestive) heart failure; Z85.3 Personal history of malignant neoplasm of breast; Z87.891 Personal history of nicotine dependence
CPT/HCPCS: 12345; 70450; 72125; 73030; 93005; 96374; 96375; 99283; J1170

== ENCOUNTER → 2020-05-08 13:24 | Outpatient (BNVA) | payer MEDICARE, MEDICAID, SELFPAY | PROVIDERS: Family Provider Family Medicine; PCP Nurse Practitioner; Visit Provider Orthopaedic Surgery | DX: S42.001A Fracture of unspecified part of right clavicle, initial encounter for closed fracture (principal) | CPT/HCPCS: 73000 ==

== ENCOUNTER 2020-11-25 18:00 | Emergency (ER) | payer MEDICARE, MEDICAID, SELFPAY ==
[2020-11-25] VITALS (9 sets, daily range): BP systolic 116–143; BP diastolic 68–85; PULSE 69–95; RESP 16–26; TEMP 36.7; O2SAT 95–98; BMI 28.3
--- NOTE | 2020-11-25 18:24 | XRR_ITS ---
PROCEDURE INFORMATION: Exam: XR Chest Exam date and time: 11/25/2020 6:26 PM Age: 75 years old Clinical indication: Chest pain; Additional info: Cp TECHNIQUE: Imaging protocol: XR of the chest. Views: 1 view. COMPARISON: CR (CHEST, ) 10/15/2019 10:18 PM FINDINGS: Lungs: Hyperinflation of lungs. Coarsened reticular interstitial lung change. No focal consolidation. Pleural spaces: Unremarkable. No pleural effusion. No pneumothorax. Heart/Mediastinum: Unremarkable. No cardiomegaly. Vasculature: Moderate atherosclerosis of aortic arch. Bones/joints: Demineralized bones. Distracted fracture in the middle 3rd of the right clavicle with small volume of bone callus new from comparison. XR/XR chest 1V portable [id number] IMPRESSION: 1. No acute findings. 2. Subacute or chronic right clavicle fracture partially united new from comparison.
--- NOTE | 2020-11-25 18:24 | ECG_ITS ---
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 Measurements Intervals [place] Rate: 71 P: 53 [place]: 163 QRS: -22 QRSD: 116 T: 76 QT: 426 QTc: 466 Interpretive Statements SINUS RHYTHM POSSIBLE ANTERIOR MYOCARDIAL INFARCTION [30 ms Q WAVE IN V3/V4, OR R < 0.2 mV IN V4], OF INDETERMINATE AGE Compared to ECG 04/09/2020 20:21:08 Left ventricular hypertrophy no longer present ST (T wave) deviation no longer present Myocardial infarct finding still present Electronically Signed On 11-26-2020 20:13:07 CDT by Jose Willis M.D. [id number]
[2020-11-25 18:35] LABS: Basophils % 0.7 %; Eosinophils % 1.1 %; Hematocrit 31.3 % (37.0-47.0); Lymphocytes % 36.1 %; Mean Corpuscular HGB Conc 31.9 g/dL (30.0-36.0); Mean Corpuscular Hemoglobin 31.4 pg (28.0-34.0); Mean Corpuscular Volume 98.4 fL (81-99); Mean Platelet Volume 10.8 fL (7.4-10.4); Monocytes # 0.3 10^3/uL (0.2-0.9); Monocytes % 10.4 %; Neutrophils # 1.45 10^3/uL (1.8-7.7); Neutrophils % 51.7 %; Nucleated Red Blood Cells % 0 %; Platelet Count 126 10^3/cmm (130-400); Red Blood Count 3.18 10^6/uL (4.1-5.3); Red Cell Distribution Width 13.2 % (12.1-15.1); White Blood Count 2.8 10^3/uL (4.0-10.0)
[2020-11-25 18:59] LABS: Troponin(5th) Baseline 14 ng/L (0-10)
[2020-11-25 19:12] LABS: Alanine Aminotransferase 13 U/L (0-33); Alkaline Phosphatase 96 IU/L (35-105); Anion Gap 16.4 (5-19); Aspartate Amino Transferase 27 U/L (0-32); Blood Urea Nitrogen 44 mg/dL (8-23); Calcium 8.4 mg/dL (8.5-10.5); Carbon Dioxide 24 mmol/L (22-29); Chloride 101 mmol/L (98-107); Globulin 3.6 g/dL (1.3-4.6); Glucose 81 mg/dL (65-115); Lipase 75 U/L (13-60); Osmolality Calculated 294 mOsm/kg (285-295); Potassium 4.4 mmol/L (3.5-5.1); Sodium 137 mmol/L (136-145); Total Bilirubin 0.2 mg/dL (0.15-1.2); Total Protein 7.6 g/dL (6.6-8.7)
[2020-11-25 21:01] LABS: Troponin 5 2HR 12.98 ng/L (0-10)
[2020-11-25 21:06] LABS: Troponin 5 2HR Delta -1.02 ABS# (0-10)
--- NOTE | 2020-11-25 21:12 | ED_ITS ---
HPI - Chest Pain General: Chief Complaint: Chest Pain Stated Complaint: CHEST PAIN Time Seen by Provider: 11/25/20 18:09 Source: patient Mode of arrival: ambulatory Limitations: no limitations History of Present Illness: HPI narrative: 75-year-old female patient who says she has been feeling unwell for about a day and this afternoon noticed substernal chest pain. The pain was nonradiating but she had associated nausea and dizziness. She has no prior history of cardiac illness. She presents to the emergency department to be evaluated for this after being seen at the clinic. complaint: chest pain Onset (ago): hour(s) (5) Timing of current episode: constant Prior episodes: No Onset: during rest Pain location: substernal Pain radiation: none Severity: moderate Quality: aching Relieving factors: nitroglycerin Exacerbating factors: nothing Associated symptoms: Reports nausea; Deny abdominal pain, diaphoresis, dyspnea, fever(s), leg edema, palpitations, sense of impending doom, syncope or vomiting Treatment prior to arrival: aspirin and nitroglycerin Review of Systems General: Reports: 10 or more systems reviewed and unremarkable except in HPI and below Const: Denies: fever(s) or diaphoresis Card: Denies: palpitations or syncope Resp: Denies: dyspnea GI: Reports: nausea; Denies: abdominal pain or vomiting [facility] ED PFSH: Medical History (Reviewed 11/25/20 @ 23:51 by Jozef Navarro MD, [facility] Acute diastolic heart failure Anemia Aortic ectasia, thoracic Atypical chest pain Benign essential hypertension with target blood pressure below 140/90 Breast cancer, right Depression Hypertension Recurrent syncope Syncope Surgical History (Reviewed 11/25/20 @ 23:51 by Jozef Navarro MD, [facility] H/O mastectomy History of appendectomy Family History (Reviewed 11/25/20 @ 23:51 by Jozef Navarro MD, [facility] Sister Cancer Sister had breast cancer Social History (Reviewed 11/25/20 @ 23:51 by Jozef Navarro MD, [facility] Smoking and tobacco status: former smoker Quit status (tobacco): has quit using tobacco Year quit tobacco: 12 to 15 years ago Alcohol intake: never Household members: family Marital status: / Physical Exam Const: COMMON NORMALS: no acute distress, average body habitus, patient oriented x3, no limitations, healthy appearing, alert and well nourished HENMT: COMMON NORMALS: normocephalic, atraumatic and moist oral mucous membranes HEAD & SCALP: normocephalic and atraumatic Neck/C-Spine: COMMON NORMALS: no meningeal signs and no JVD Resp: COMMON NORMALS: normal respiratory effort, No retractions, No use of accessory muscles, clear to auscultation bilaterally and percussion normal AUSCULTATION: clear to auscultation bilaterally PERCUSSION: percussion normal Cardio: COMMON NORMALS: no JVD, regular rate, regular rhythm, S1 normal heart sound present, S2 normal heart sound present, No gallops present (Cardio), No clicks present (Cardio), No murmurs present (Cardio), No rub (Cardio) and Peripheral pulses 2+ throughout RATE: regular rate RHYTHM: regular rhythm HEART SOUNDS: S1 normal heart sound present and S2 normal heart sound present PERIPHERAL PULSES: Peripheral pulses 2+ throughout GI: COMMON NORMALS: Normal to inspection, nondistended, normoactive bowel sounds present, Soft to palpation, non-tender, No hepatosplenomegaly present, no masses and no bruits PALPATION: Yes Soft to palpation and Yes No hepatosplenomegaly present Extremity: COMMON NORMALS: normal to inspection, full ROM, capillary refill normal, no calf tenderness and no pedal edema Neuro: COMMON NORMALS: patient oriented x3 SENSORIUM/ORIENTATION: Yes alert MENINGEAL SIGNS: Yes no meningeal signs Course Reevaluation(s): Reevaluation #1: Discussed her lab and imaging findings with her. No significant acute findings. BUN/creatinine ratio shows that she may be dehydrated. She states that she drinks plenty of water and that is all she drinks and she does not think she needs IV fluids. We will therefore discharge her home with no new orders. She voiced understanding and she is in agreement with the plan. Time: 21:13 Vital Signs: Vital signs: Vital Signs Temperature 98.1 F 11/25/20 18:22 Pulse Rate 95 11/25/20 21:32 Respiratory Rate 26 H 11/25/20 21:32 Blood Pressure 134/84 11/25/20 21:32 Pulse Oximetry 95 11/25/20 21:32 MDM - Chest Pain MDM Narrative: Medical decision making narrative: 75-year-old female patient who presents to the emergency department with chest pain. Evaluation in the emergency department was on remarkable for acute cardiac issues. She is discharged home with no new orders. Medical Records: Attestation: I reviewed the patient's medical records. Lab Data: Attestation: I reviewed the patient's lab results. Labs: Lab Results 11/25/20 11/25/20 11/25/20 Range/Units 18:28 18:28 18:28 WBC 2.8 L (4.0-10.0) 10^3/ uL RBC 3.18 L (4.1-5.3) 10^6/u L Hgb 10.0 L (11.5-15.3) g/dL Hct 31.3 L (37.0-47.0) % MCV 98.4 (81-99) fL MCH 31.4 (28.0-34.0) pg MCHC 31.9 (30.0-36.0) g/dL RDW 13.2 (12.1-15.1) % Plt Count 126 L (130-400) 10^3/c mm MPV 10.8 H (7.4-10.4) fL Neut % (Auto) 51.7 % Lymph % (Auto) 36.1 % [place] % (Auto) 10.4 % Eos % (Auto) 1.1 % Baso % (Auto) 0.7 % Neut # (Auto) 1.45 L (1.8-7.7) 10^3/u L Lymph # (Auto) 1.0 (0.8-4.8) 10^3/u L [place] # (Auto) 0.3 (0.2-0.9) 10^3/u L Eos # (Auto) 0.0 (0.0-0.8) 10^3/u L Baso # (Auto) 0.0 (0.0-0.1) 10^3/u L Nucleated RBC % (a uto) 0 % Nucleated RBCs # 0.0 /100WBC Sodium 137 (136-145) mmol/L Potassium 4.4 (3.5-5.1) mmol/L Chloride 101 (98-107) mmol/L Carbon Dioxide 24 (22-29) mmol/L Anion Gap 16.4 (5-19) BUN 44 H (8-23) mg/dL Creatinine 1.6 H (0.5-0.9) mg/dL GFR Calculation Not Reportable Glucose 81 (65-115) mg/dL Calculated Osmolal ity 294 (285-295) mOsm/k g Calcium 8.4 L (8.5-10.5) mg/dL Total Bilirubin 0.2 (0.15-1.2) mg/dL AST 27 (0-32) U/L ALT 13 (0-33) U/L Alkaline Phosphata se 96 (35-105) IU/L Troponin T Baselin e 14 H (0-10) ng/L Troponin T 120 Min crow (0-10) ng/L Delta Troponin T (0-10) ABS# Total Protein 7.6 (6.6-8.7) g/dL Albumin 4.0 (3.5-5.2) g/dL Globulin 3.6 (1.3-4.6) g/dL Lipase 75 H (13-60) U/L 11/25/20 Range/Units 20:26 WBC (4.0-10.0) 10^3/ uL RBC (4.1-5.3) 10^6/u L Hgb (11.5-15.3) g/dL Hct (37.0-47.0) % MCV (81-99) fL MCH (28.0-34.0) pg MCHC (30.0-36.0) g/dL RDW (12.1-15.1) % Plt Count (130-400) 10^3/c mm MPV (7.4-10.4) fL Neut % (Auto) % Lymph % (Auto) % [place] % (Auto) % Eos % (Auto) % Baso % (Auto) % Neut # (Auto) (1.8-7.7) 10^3/u L Lymph # (Auto) (0.8-4.8) 10^3/u L [place] # (Auto) (0.2-0.9) 10^3/u L Eos # (Auto) (0.0-0.8) 10^3/u L Baso # (Auto) (0.0-0.1) 10^3/u L Nucleated RBC % (a uto) % Nucleated RBCs # /100WBC Sodium (136-145) mmol/L Potassium (3.5-5.1) mmol/L Chloride (98-107) mmol/L Carbon Dioxide (22-29) mmol/L Anion Gap (5-19) BUN (8-23) mg/dL Creatinine (0.5-0.9) mg/dL GFR Calculation Glucose (65-115) mg/dL Calculated Osmolal ity (285-295) mOsm/k g Calcium (8.5-10.5) mg/dL Total Bilirubin (0.15-1.2) mg/dL AST (0-32) U/L ALT (0-33) U/L Alkaline Phosphata se (35-105) IU/L Troponin T Baselin e (0-10) ng/L Troponin T 120 Min crow 12.98 H (0-10) ng/L Delta Troponin T -1.02 L (0-10) ABS# Total Protein (6.6-8.7) g/dL Albumin (3.5-5.2) g/dL Globulin (1.3-4.6) g/dL Lipase (13-60) U/L Imaging Data^: CXR: Attestation: I personally reviewed and interpreted this imaging study as follows: Radiologist's impression: [address] [address] XRay Report Signed Patient: Negin Lee #: [id number] : 6Acct#:[id number] Age/Sex: 75 / FADM Date: 11/25/20 Loc: ERRoom/Bed: Attending Dr: Ordering Provider/Ordering MD: Jozef Navarro MD, [facility] Date of Service: 11/25/20 Procedure(s): XR chest 1V portable [id number] Accession Number(s): [id number] Report Number: [id number] PROCEDURE INFORMATION: Exam: XR Chest Exam date and time: 11/25/2020 6:26 PM Age: 75 years old Clinical indication: Chest pain; Additional info: Cp TECHNIQUE: Imaging protocol: XR of the chest. Views: 1 view. COMPARISON: CR (CHEST, ) 10/15/2019 10:18 PM FINDINGS: Lungs: Hyperinflation of lungs. Coarsened reticular interstitial lung change. No focal consolidation. Pleural spaces: Unremarkable. No pleural effusion. No pneumothorax. Heart/Mediastinum: Unremarkable. No cardiomegaly. Vasculature: Moderate atherosclerosis of aortic arch. Bones/joints: Demineralized bones. Distracted fracture in the middle 3rd of the right clavicle with small volume of bone callus new from comparison. XR/XR chest 1V portable [id number] IMPRESSION: 1. No acute findings. 2. Subacute or chronic right clavicle fracture partially united new from comparison. Dictated By:Lito Mariee Signed By:Ryan Mariee Date/Time:11/25/201929 DD/ 27 EKG Data^: EKG 1: Attestation: I personally reviewed and interpreted this EKG as follows: EKG interpretation date: 11/25/20 EKG interpretation time: 18:13 Prior EKG tracings: not available for review Interpretation: Sinus rhythm. Heart rate 71 bpm. Q wave in aVL. No ST changes Discharge Plan Discharge Patient Disposition: Home Clinical Impression: Dehydration Chest pain Qualifiers: Chest pain type: unspecified Qualified Code(s): R07.9 - Chest pain, unspecified Condition: Stable Prescriptions: Continued lisinopril 20 mg tablet 20 mg PO DAILY RF: 0 Miralax 17 gram Powder In Packet 17 g PO DAILY Qty: 0 RF: 0 sennosides-docusate sodium 8.6-50 mg Tablet 1 tab PO BID Qty: 0 RF: 0 Discharge Orders: Discharge ED (Routine); Ordered 11/25/20 Ordered By: Jozef Navarro Discharge Diet: Usual diet Discharge Activity: Increase activity as tolerated Patient Instructions: Chest Pain (ED), Dehydration (ED) Activity Restrictions/Additional Instructions: Return for any new or worsening symptoms. Follow-up with your primary care provider within 3 days. Continue your home medications as prescribed. Continue to drink plenty of water. Coding Level of Care Code ED News Videographer for Mary Melendrez
== END 2020-11-25 21:31 | disposition home or self-care (01) ==
PROVIDERS: Emergency Provider Family Medicine
DX: R07.9 Chest pain, unspecified (principal); E86.0 Dehydration; I11.0 Hypertensive heart disease with heart failure; I50.31 Acute diastolic (congestive) heart failure; Z85.3 Personal history of malignant neoplasm of breast; Z87.891 Personal history of nicotine dependence
CPT/HCPCS: 36415; 71045; 80053; 83690; 84484; 85025; 93005; 99284

== ENCOUNTER → 2021-01-22 14:40 | Outpatient (BNVA) | payer MEDICARE, MEDICAID, SELFPAY | PROVIDERS: Visit Provider Emergency Medicine | DX: M79.672 Pain in left foot (principal) | CPT/HCPCS: 73630 ==

== ENCOUNTER → 2022-03-06 11:52 | Outpatient (BNVA) | payer MEDICARE, MEDICAID, SELFPAY | PROVIDERS: Visit Provider Emergency Medicine | DX: N23 Unspecified renal colic (principal); R11.0 Nausea; R82.998 Other abnormal findings in urine | CPT/HCPCS: 81000 ==

== ENCOUNTER 2022-03-31 07:53 | Oncology outpatient (recurring) (ONCR) | payer MEDICARE, MEDICAID, SELFPAY | END 2022-04-16 23:59 | disposition home or self-care (01) | PROVIDERS: Visit Provider Internal Medicine Medical Oncology | DX: C77.3 Secondary and unspecified malignant neoplasm of axilla and upper limb lymph nodes (principal); Z85.3 Personal history of malignant neoplasm of breast; Z87.891 Personal history of nicotine dependence; M85.80 Other specified disorders of bone density and structure, unspecified site; D47.2 Monoclonal gammopathy; Z92.3 Personal history of irradiation | CPT/HCPCS: 99205 ==

== ENCOUNTER 2022-05-14 15:30 | Oncology outpatient (recurring) (ONCR) | payer MEDICARE, MEDICAID, SELFPAY ==
[2022-04-17] MEDS: fulvestrant 250 mg/5 mL Syringe 500 MG IM (17:14)
[2022-05-01] MEDS: fulvestrant 250 mg/5 mL Syringe 500 MG IM (15:13)
--- NOTE | 2022-05-01 15:24 | PC.PHAR ---
PATIENT EDUCATION: BETITO SPOKE WITH PATIENT AND TWO [employer] FAMILY MEMBERS ABOUT INITIATION OF KISQALI. PATIENT WAS COUNSELED TO STOP HER PREVIOUS ORAL MEDICATION. KISQALI WILL BE ADMINISTERED IN COMBINATION WITH FULVESTRANT. SHE IS CURRENTLY ON DAY 15 OF HER FULVESTRANT. PATIENT WAS COUSELED TO TAKE 3 TABS DAILY IN THE MORNINGS FOR 21 DAY ON 7 DAYS OFF. IF PATIENT FORGETS TO TAKE HER MEDICATION, SHE WILL SKIP THE DOSE AND CONTINUE ON THE NEXT DAY. WE TALKED ABOUT COMMON SIDE EFFECTS SUCH FATIGUE, NAUSEA, VOMITING, CONSTIPATION, DIARRHEA, ALOPECIA, HEADACHE, RASH, COUGH. PATIENT IS TO LET US KNOW IF ANY OF THESE ARE INTOLERABLE. SERIOUS SIDE EFFECTS WHERE SHE IS TO CALL US IMMEDIATELY ARE S/SX OF INFECTION, SKIN REACTION, HEART PALPITATIONS AND NEW/WORSENING COUGH. PATIENT WILL AVOID GRAPEFRUIT.
[2022-05-01 16:47] LABS: Alanine Aminotransferase 22 U/L (0-33); Albumin Level 3.9 g/dL (3.5-5.2); Alkaline Phosphatase 98 U/L (35-105); Anion Gap 16.2 (5-19); Aspartate Amino Transferase 35 U/L (0-32); Blood Urea Nitrogen 21 mg/dL (8-23); Carbon Dioxide 21 mmol/L (22-29); Chloride 105 mmol/L (98-107); Globulin 3.6 g/dL (1.3-4.6); Glucose 84 mg/dL (65-115); Osmolality Calculated 288 mOsm/kg (285-295); Potassium 4.2 mmol/L (3.5-5.1); Sodium 138 mmol/L (136-145); Total Bilirubin 0.5 mg/dL (0.15-1.2); Total Protein 7.5 g/dL (6.6-8.7)
[2022-05-01 17:16] LABS: Basophils % 0.6 %; Eosinophils % 1.2 %; Hematocrit 37.3 % (37.0-47.0); Hemoglobin 11.7 g/dL (11.5-15.3); Lymphocytes # 1.2 10^3/uL (0.8-4.8); Lymphocytes % 34.8 %; Mean Corpuscular HGB Conc 31.4 g/dL (30.0-36.0); Mean Corpuscular Volume 101.9 fl (81-99); Mean Platelet Volume 11.2 fL (7.4-10.4); Monocytes # 0.3 10^3/uL (0.2-0.9); Monocytes % 9.4 %; Neutrophils # 1.77 10^3/uL (1.8-7.7); Neutrophils % 53.7 %; Nucleated Red Blood Cells % 0 %; Platelet Count 123 10^3/cmm (130-400); Red Blood Count 3.66 10^6/uL (4.1-5.3); Red Cell Distribution Width 13.1 % (12.1-15.1); White Blood Count 3.3 10^3/uL (4.0-10.0)
[2022-05-01 17:36] LABS: CA 15-3 10.7 U/mL (0-25)
[2022-05-14] MEDS: fulvestrant 250 mg/5 mL Syringe 500 MG IM (15:53)
== END 2022-05-16 23:59 | disposition home or self-care (01) ==
PROVIDERS: PCP Family Medicine; Visit Provider Internal Medicine Medical Oncology
DX: C77.3 Secondary and unspecified malignant neoplasm of axilla and upper limb lymph nodes (principal); C50.511 Malignant neoplasm of lower-outer quadrant of right female breast; Z79.818 Long term (current) use of other agents affecting estrogen receptors and estrogen levels; Z17.0 Estrogen receptor positive status [ER+]
CPT/HCPCS: 80053; 85025; 86300; 96402; 99214; J9395

== ENCOUNTER 2022-05-27 20:41 | Emergency (ER) | payer MEDICARE, MEDICAID, SELFPAY ==
[2022-05-27 20:50] VITALS: BP 163/80; PULSE 84; RESP 18; TEMP 36.8; O2SAT 97; BMI 28.3
--- NOTE | 2022-05-27 20:58 | XRR_ITS ---
PROCEDURE INFORMATION: Exam: XR Chest Exam date and time: 05/27/2022 9:34 PM Age: 76 years old Clinical indication: Chest pressure and chest wall pain; Additional info: Chest pain TECHNIQUE: Imaging protocol: Radiologic exam of the chest. Views: 1 view. COMPARISON: CT chest abd pel w con* 01/15/2022 2:24 PM FINDINGS: Lungs: Emphysematous changes. Pleural spaces: Unremarkable. No pleural effusion. No pneumothorax. Heart/Mediastinum: Cardiomegaly. Bones/joints: Chronic right midclavicular displaced fracture. Soft tissues: Rounded radiodensity over the right upper lung field again seen suggestive of a foreign body, potentially within the skin. XR/XR chest 1V portable [id number] IMPRESSION: 1. Negative for infiltrate. 2. Emphysematous changes. 3. Cardiomegaly. 4. Rounded radiodensity over the right upper lung field again seen suggestive of a foreign body, potentially within the skin. 5. Chronic right midclavicular displaced fracture.
--- NOTE | 2022-05-27 21:02 | ECG_ITS ---
[facility] Test Date: 2022-05-27 Pat Name: Negin Lee Department: Room: Gender: Female Avid Editor: : 1945 Requested By: Adair Moise Order Number: [id number] Hardwick MD: Jose Willis M.D. Measurements Intervals [place] Rate: 76 P: 54 LA: 148 QRS: -20 QRSD: 111 T: 105 QT: 395 QTc: 446 Interpretive Statements SINUS RHYTHM POSSIBLE ANTERIOR MYOCARDIAL INFARCTION , OF INDETERMINATE AGE [30 ms Q WAVE IN V3/V4, OR R < 0.2 mV IN V4] MODERATE T-WAVE ABNORMALITY, CONSIDER LATERAL ISCHEMIA [-0.1+ mV T-WAVE IN I/aVL/V5/V6] Compared to ECG 11/25/2020 18:13:45 T-wave abnormality now present Possible ischemia now present Myocardial infarct finding still present Electronically Signed On 05-28-2022 8:24:21 CDT by Jose Willis M.D. [id number]
--- NOTE | 2022-05-27 21:26 | ED_ITS ---
HPI - Chest Pain General: Chief Complaint: Chest Pain Stated Complaint: Chest Pain Time Seen by Provider: 05/27/22 21:26 History of Present Illness: Ms. Lee is a 76-year-old lady with significant past medical history of MGUS, breast cancer, hypertension, hyperlipidemia, heart failure who presents to the emergency department due to chest pain. Onset of symptoms was at rest few hours prior to arrival without known specific provoking factor. She endorses associated shortness of breath with nausea. Denies frequent history of chest pain. Prior cardiac evaluation was a number of years ago. No other specific changes in health, exacerbating, or alleviating factors identified. 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 Osteopenia Surgical History History of appendectomy History of lumpectomy of right breast (2012) Right breast lumpectomy with axillary sentinel lymph node biopsy History of lymph node biopsy (01/28/22) Right axillary lymph node biopsy Family History Sister Cancer Sister had breast cancer Other Diabetes Hypertension Denies family history of CAD (coronary artery disease) Clotting disorder Dementia Hyperlipidemia Psychiatric illness Chronic kidney disease (CKD) Suicide Anesthesia complication Bleeding disorder Lung disease Stroke Social History Smoking and tobacco status: former smoker (smoked from age 18 to age 60) Quit status (tobacco): has quit using tobacco Year quit tobacco: 12 to 15 years ago Alcohol intake: never Household members: family Marital status: / Physical Exam Const: COMMON NORMALS: alert GENERAL APPEARANCE: cooperative and well developed HENMT: COMMON NORMALS: normocephalic and atraumatic HEAD & SCALP: normoceph alic and atraumatic THROAT: posterior oropharynx normal Eye: COMMON NORMALS: conjunctivae normal CONJUNCTIVA: Yes conjunctivae normal SCLERA: sclerae normal Neck/C-Spine: COMMON NORMALS: supple GENERAL: Yes trachea midline Resp: COMMON NORMALS: clear to auscultation bilaterally EFFORT & INSPECTION: Yes able to speak in complete sentences AUSCULTATION: clear to auscultation bilaterally Cardio: COMMON NORMALS: regular rate and regular rhythm RATE: regular rate RHYTHM: regular rhythm GI: COMMON NORMALS: Soft to palpation PALPATION: Yes Soft to palpation and No Tenderness to palpation present (GI) Extremity: GENERAL: Yes normal exam except as noted and No edema Neuro: COMMON NORMALS: moves all extremities SENSORIUM/ORIENTATION: Yes alert and No Orientation impaired Psych: COMMON NORMALS: mental status grossly normal and Normal thought process present THOUGHT PROCESS: Normal thought process present Course ED course: - Patient was seen and evaluated by me at bedside - Patient placed on cardiac monitors, IV access obtained - Initial evaluation notable for exam as above. EKG showing sinus rhythm with nonspecific interventricular conduction delay and nonspecific ST segment ab normalities, no STEMI. - Labs and xrays personally interpreted by me -Aspirin and nitroglycerin given - Labs notable for pancytopenia. Metabolic panel without significant derangement requiring intervention. D-dimer negative. Delta troponin negative. No UTI. - Imaging notable for no lobar consolidation or pneumothorax, similar to prior overall. - Upon serial reexamination after treatment the patient was improved - Based on patient history, evaluation, and testing as interpreted the most likely cause of the patient's condition is chest pain of uncertain etiology in a patient that is not low risk - The results of ED evaluation were discussed with the patient including possible disposition options. I discussed risk stratification by heart score and estimated risk of major adverse cardiac events. The patient wishes to proceed with outpatient management. I discussed prescriptions and/or symptomatic cares (if applicable) including appropriate and responsible use, followup plan, and return precautions. The patient verbalized understanding and felt safe for discharge. - Patient discharged in satisfactory condition. Note: Click bubbles or prepopulated bailey in note writing are used for assistance with data collection and billing and are inherently more limited than narrative and other text portions of this note. Please use narrative for additional clinical history and defer to narrative/free test for any case of contradictory information. If information appears in only free text or click bubble it should be considered present or absent as reported. Please contact note newswriter for clarifications of clinical information or contradictory information. MDM is a brief summary, contradictory or erroneous seeming information should be clarified and full note should be reviewed. Vital Signs: Vital signs: Vital Signs Temperature 98.2 F 05/27/22 20:50 Pulse Rate 72 05/28/22 00:46 Respiratory Rate 18 05/28/22 00:46 Blood Pressure 154/78 05/28/22 00:46 Pulse Oximetry 98 05/28/22 00:46 Oxygen Delivery Me thod 05/28/22 00:46 MDM - Chest Pain Medical Decision Making 76-year-old lady presenting with chest pain. Patient is not low risk by heart score. Negative ED evaluation for acute pathology, no STEMI. Patient electing to proceed with outpatient testing after discussion. Strict return precautions given. Medical Records I reviewed the patient's medical records. Lab Data I reviewed the patient's lab results. : 05/27/22 21:30 05/27/22 22:22 Radiology Impressions Chest X-Ray 05/27/22 20:58 IMPRESSION: 1. Negative for infiltrate. 2. Emphysematous changes. 3. Cardiomegaly. 4. Rounded radiodensity over the right upper lung field again seen suggestive of a foreign body, potentially within the skin. 5. Chronic right midclavicular displaced fracture. Laboratory Results WBC 1.8 10^3/uL (4.0-10.0) L 05/27/22 21:30 RBC 3.32 10^6/uL (4.1-5.3) L 05/27/22 21:30 Hgb 11.3 g/dL (11.5-15.3) L 05/27/22 21:30 Hct 33.8 % (37.0-47.0) L 05/27/22 21:30 MCV 101.8 fl (81-99) H 05/27/22 21:30 MCH 34.0 pg (28.0-34.0) 05/27/22 21:30 MCHC 33.4 g/dL (30.0-36.0) 05/27/22 21:30 RDW 14.0 % (12.1-15.1) 05/27/22 21:30 Plt Count 97 10^3/cmm (130-400) L 05/27/22 21:30 MPV 11.4 fL (7.4-10.4) H 05/27/22 21:30 Neut % (Auto) 33.3 % 05/27/22 21:30 Lymph % (Auto) 52.0 % 05/27/22 21:30 [place] % (Auto) 12.4 % 05/27/22 21: Eos % (Auto) 0.6 % 05/27/22 21: Baso % (Auto) 1.1 % 05/27/22 21: Neut # (Auto) 0.59 10^3/uL (1.8-7.7) L* 05/27/22: Lymph # (Auto) 0.9 10^3/uL (0.8-4.8) 05/27/22 21: [place] # (Auto) 0.2 10^3/uL (0.2-0.9) 05/27/22 21: Eos # (Auto) 0.0 10^3/uL (0.0-0.8) 05/27/22 21: Baso # (Auto) 0.0 10^3/uL (0.0-0.1) 05/27/22: Nucleated RBC % (auto) 0 % 05/27/22: Nucleated RBCs # 0.0 /100WBC 05/27/22: D-Dimer 0.44 ug/mIFEU (0-0.59) 05/27/22 23:12 Sodium 139 mmol/L (136-145) 05/27/22 22:22 Potassium 4.3 mmol/L (3.5-5.1) 05/27/22 22:22 Chloride 106 mmol/L (98-107) 05/27/22 22:22 Carbon Dioxide 23 mmol/L (22-29) 05/27/22 22:22 Anion Gap 14.3 (5-19) 05/27/22 22:22 BUN 24 mg/dL (8-23) H 05/27/22 22:22 Creatinine 1.5 mg/dL (0.5-0.9) H 05/27/22 22:22 GFR Calculation Not Reportable 05/27/22 22:22 Glucose 83 mg/dL (65-115) 05/27/22 22:22 Calculated Osmolality 291 mOsm/kg (285-295) 05/27/22 22:22 Calcium 8.7 mg/dL (8.5-10.5) 05/27/22 22:22 Total Bilirubin 0.3 mg/dL (0.15-1.2) 05/27/22 22:22 AST 26 U/L (0-32) 05/27/22 22:22 ALT 15 U/L (0-33) 05/27/22 22:22 Alkaline Phosphatase 87 U/L (35-105) 05/27/22 22:22 Troponin T Baseline 11 ng/L (0-10) H 05/27/22 22:22 Troponin T 120 Minute 10.90 ng/L (0-10) H 05/27/22 23:35 Delta Troponin T -0.10 ABS# (0-10) L 05/27/22 23:35 Total Protein 7.3 g/dL (6.6-8.7) 05/27/22 22: Albumin 3.8 g/dL (3.5-5.2) 05/27/22 22: Globulin 3.5 g/dL (1.3-4.6) 05/27/22 22:22 Lipase Cancelled 05/27/22 21:30 Urine Color Colorless (Yellow) 05/27/22 21: Urine Appearance Clear (CLEAR) 05/27/22 21:30 Urine pH 6 (5-7) 05/27/22 21:30 Ur Specific [place] 1.010 (1.005-1.030) 05/27/22 21: Urine Protein Neg (Negative) 05/27/22 21:30 Urine Glucose (UA) Norm (Normal) 05/27/22 21: Urine Ketones Negative (Negative) 05/27/22 21: Urine Blood Neg (Negative) 05/27/22 21: Urine Nitrate Negative (Negative) 05/27/22 21: Urine Bilirubin Neg (Negative) 05/27/22 21: Urine Urobilinogen Norm mg/dL (Negative) 05/27/22 21:30 Ur Leukocyte Esterase Trace (Negative) H 05/27/22 21:30 Urine RBC None /hpf (0-2) 05/27/22 21:30 Urine WBC 0-4 /hpf (0-5) H 05/27/22 21:30 Ur Squamous Epith Cells None /hpf (0-5) 05/27/22 21:30 Ur Renal Epithelial Cell 0-2 /hpf 05/27/22 21:30 Amorphous Sediment Not Reportable 05/27/22 21:30 Urine Bacteria Trace /hpf (NONE) 05/27/22 21:30 Discharge Plan Discharge Patient Disposition: Home Clinical Impression: Chest pain, Pancytopenia Condition: Stable Prescriptions: No Action acetaminophen [Tylenol] 325 mg capsule 325 mg PO QID PRN exemestane 25 mg tablet 25 mg PO DAILY Qty: 30 0RF Rx Instructions: must administer after a meal Kisqali 200 mg/day (200 mg x 1) tablet 600 mg PO DAILY Qty: 63 0RF Hold Instructions: Doctor's Order Rx Instructions: administer for 21 days; off 7 days per 28-day cycle levofloxacin 500 mg tablet 500 mg PO DAILY Qty: 7 0RF Discharge Orders: Discharge ED (Routine); Ordered 05/28/22 Ordered By: Adair Moise Referrals: Maciej Jaime [Primary Care Provider] - Discharge Diet: Usual diet Discharge Activity: Increase activity as tolerated Patient Instructions: Chest Pain (ED) Activity Restrictions/Additional Instructions: Thank you for visiting the emergency department. You were seen and evaluated for chest pain. The exact cause of her symptoms is unclear though as discussed does require further evaluation based on risk stratification. You are electing to have this done in the outpatient setting. I will message case management for scheduling. Please follow-up with your primary care provider. Return to the emergency department for recurrence of symptoms, worsening symptoms, or anything else that you are concerned about a feel needs emergency department evaluation. Coding Level of Care Code ED Integrity Assessor for Mary Melendrez
[2022-05-27 21:27] VITALS: BP 149/86; PULSE 65; RESP 16; O2SAT 97
[2022-05-27 21:39] LABS: Basophils % 1.1 %; Eosinophils % 0.6 %; Hematocrit 33.8 % (37.0-47.0); Hemoglobin 11.3 g/dL (11.5-15.3); Lymphocytes # 0.9 10^3/uL (0.8-4.8); Mean Corpuscular HGB Conc 33.4 g/dL (30.0-36.0); Mean Corpuscular Volume 101.8 fl (81-99); Mean Platelet Volume 11.4 fL (7.4-10.4); Monocytes # 0.2 10^3/uL (0.2-0.9); Monocytes % 12.4 %; Neutrophils % 33.3 %; Nucleated Red Blood Cells % 0 %; Platelet Count 97 10^3/cmm (130-400); Red Blood Count 3.32 10^6/uL (4.1-5.3); White Blood Count 1.8 10^3/uL (4.0-10.0)
[2022-05-27 22:24] LABS: Add Urine Microscopic? YES; Bilirubin Urine Neg (Negative); Blood Urine Neg (Negative); Glucose Urine UA Norm (Normal); Ketones Urine Negative (Negative); Leukocyte Esterase Urine Trace (Negative); Nitrate Urine Negative (Negative); Protein Urine Neg (Negative); Urine Appearance Clear (CLEAR); Urine Color Colorless (Yellow); Urobilinogen Urine Norm (Negative); pH Urine 6 (5-7)
[2022-05-27] MEDS: aspirin 81 mg Chew Tablet 324 MG PO (22:24)
[2022-05-27] MEDS: pantoprazole 40 mg SDV IVP (22:24)
[2022-05-27] MEDS: nitroglycerin 0.4 mg sublingual Tablet SUBLINGUAL (22:24)
[2022-05-27 22:25] LABS: Add Urine Culture? No; Bacteria Urine TRACE /hpf; Renal Epithelial Cells Urine 0-2 /hpf; WBC Urine 0-4 /hpf (0-5)
[2022-05-27 22:27] VITALS: BP 142/82; PULSE 72; RESP 16; O2SAT 98
[2022-05-27 22:42] LABS: Alanine Aminotransferase 15 U/L (0-33); Albumin Level 3.8 g/dL (3.5-5.2); Alkaline Phosphatase 87 U/L (35-105); Anion Gap 14.3 (5-19); Aspartate Amino Transferase 26 U/L (0-32); Blood Urea Nitrogen 24 mg/dL (8-23); Calcium 8.7 mg/dL (8.5-10.5); Carbon Dioxide 23 mmol/L (22-29); Chloride 106 mmol/L (98-107); Globulin 3.5 g/dL (1.3-4.6); Glucose 83 mg/dL (65-115); Osmolality Calculated 291 mOsm/kg (285-295); Potassium 4.3 mmol/L (3.5-5.1); Sodium 139 mmol/L (136-145); Total Bilirubin 0.3 mg/dL (0.15-1.2); Total Protein 7.3 g/dL (6.6-8.7)
[2022-05-27 22:43] LABS: Troponin(5th) Baseline 11 ng/L (0-10)
[2022-05-27 22:46] LABS: Neutrophils # 0.59 10^3/uL (1.8-7.7)
--- NOTE | 2022-05-27 22:58 | ECG_ITS ---
[facility] Test Date: 2022-05-27 Pat Name: Negin Lee Department: Room: Gender: Female Health Information Internship: : 1945 Requested By: Adair Moise Order Number: [id number] Mulu MD: Jose Willis M.D. Measurements Intervals [place] Rate: 63 P: 54 WI: 164 QRS: -19 QRSD: 116 T: 120 QT: 418 QTc: 429 Interpretive Statements SINUS RHYTHM WITH OCCASIONAL SUPRAVENTRICULAR PREMATURE COMPLEXES POSSIBLE LEFT VENTRICULAR HYPERTROPHY [VOLTAGE CRITERIA PLUS LAE OR QRS WIDENING] POSSIBLE ANTERIOR MYOCARDIAL INFARCTION , OF INDETERMINATE AGE [30 ms Q WAVE IN V3/V4, OR R < 0.2 mV IN V4] MODERATE T-WAVE ABNORMALITY, CONSIDER LATERAL ISCHEMIA [-0.1+ mV T-WAVE IN I/aVL/V5/V6] Compared to ECG 05/27/2022 21:02:03 No significant changes Electronically Signed On 05-28-2022 8:30:33 CDT by Jose Willis M.D. [id number]
[2022-05-27 23:38] VITALS: BP 122/82; PULSE 68; RESP 19; O2SAT 96
[2022-05-27 23:39] LABS: D Dimer 0.44 ug/mIFEU (0-0.59)
[2022-05-28 00:46] VITALS: BP 154/78; PULSE 72; RESP 18; O2SAT 98
== END 2022-05-28 00:50 | disposition home or self-care (01) ==
PROVIDERS: Emergency Provider Emergency Medicine; PCP Family Medicine
DX: R07.9 Chest pain, unspecified (principal); D61.818 Other pancytopenia; Z87.891 Personal history of nicotine dependence; I10 Essential (primary) hypertension; Z85.3 Personal history of malignant neoplasm of breast
CPT/HCPCS: 71045; 80053; 81001; 84484; 85025; 85378; 93005; 96374; 99285; C9113

== ENCOUNTER 2022-06-07 13:09 | Emergency (ER) | payer MEDICARE, MEDICAID, SELFPAY ==
[2022-06-07 13:14] VITALS: BP 133/86; PULSE 78; RESP 18; TEMP 36.7; O2SAT 97; BMI 28.3
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
[2022-06-07 14:48] VITALS: BP 160/89; PULSE 65; RESP 15; O2SAT 98
--- NOTE | 2022-06-07 14:48 | ECG_ITS ---
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 Measurements Intervals [place] Rate: 61 P: 47 AR: 157 QRS: -14 QRSD: 118 T: -14 QT: 431 QTc: 437 Interpretive Statements SINUS RHYTHM LEFT VENTRICULAR HYPERTROPHY AND ST-T CHANGE [VOLTAGE CRITERIA PLUS ST/T ABNORMALITY] POSSIBLE ANTERIOR MYOCARDIAL INFARCTION , OF INDETERMINATE AGE [30 ms Q WAVE IN V3/V4, OR R < 0.2 mV IN V4] Compared to ECG 05/27/2022 23:27:02 ST (T wave) deviation now present T-wave abnormality no longer present Possible ischemia no longer present Myocardial infarct finding still present Electronically Signed On 06-09-2022 23:02:47 CDT by Hali Guevara M.D. [id number]
--- NOTE | 2022-06-07 15:05 | W.ED.SOB ---
HPI - SOB/Dyspnea General: Chief Complaint: Shortness of Breath/Dyspnea Stated Complaint: Cancer pt, SOB, fever Time Seen by Provider: 06/07/22 14:29 Source: patient Mode of arrival: ambulatory History of Present Illness: HPI Narrative: 76-year-old female presents to the emergency room with complaint of fever chills and shortness of breath. Patient was first diagnosed with breast cancer in 2012 and then had a recurrence of an axillary node as well as on PET scan findings of mediastinal nodes. She was recently on chemotherapy but its been held the last few weeks because of leukocytopenia. She states she is currently taking antibiotics. She reports a fever at home has none on arrival here. Oncology notes reviewed. She denies chest pain some mild abdominal discomfort no vomiting no diarrhea no headaches. Patient is a smoker continues to smoke about a half a pack a day MD elicited complaint: shortness of breath and cough Pertinent past history: COPD Onset (ago): day(s) Timing: intermittent Severity: mild Exacerbating factors: exertion and coughing Relieving factors: rest Known history of: COPD Associated symptoms: Reports fever(s) (Subjective); Deny abdominal pain, chest congestion, chest pain, diaphoresis, dizziness, extremity pain, hemoptysis, lightheadedness, myalgias, nausea, orthopnea, palpitations, polydipsia, polyuria, rash, sense of impending doom, syncope or vomiting Treatment prior to arrival: none Review of Systems Const: Reports: fever(s) (Subjective), fatigue and malaise; Denies: chills or diaphoresis ENMT: Denies: throat pain, ear or mastoid pain, nasal discharge or nasal congestion Card: Denies: chest pain, palpitations, lightheadedness, syncope or orthopnea Resp: Reports: dyspnea, productive cough and wheezing; Denies: hemoptysis or chest congestion GI: Denies: abdominal pain, nausea or vomiting : Denies: flank pain, difficulty voiding, dysuria, urinary frequency or urinary urgency Musc: Denies: extremity pain Skin/Breast: Denies: rash or pruritus Neuro: Denies: dizziness Endo: Denies: polyuria or polydipsia PFSH ED PFSH: Medical History Anemia Chronic kidney disease History of hepatitis History of drug-induced hepatitis, 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 Hypertension Metastatic breast cancer 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 Osteopenia Surgical History History of appendectomy History of lumpectomy of right breast (2012) Right breast lumpectomy with axillary sentinel lymph node biopsy History of lymph node biopsy (01/28/22) Right axillary lymph node biopsy Family History Sister Cancer Sister had breast cancer Other Diabetes Hypertension Denies family history of CAD (coronary artery disease) Clotting disorder Dementia Hyperlipidemia Psychiatric illness Chronic kidney disease (CKD) Suicide Anesthesia complication Bleeding disorder Lung disease Stroke Social History Smoking and tobacco status: former smoker (smoked from age 18 to age 60) Quit status (tobacco): has quit using tobacco Year quit tobacco: 12 to 15 years ago Alcohol intake: never Household members: family Marital status: / Physical Exam Const: COMMON NORMALS: no acute distress GENERAL APPEARANCE: cooperative and comfortable ORIENTATION/CONSCIOUSNESS: Yes awake, Yes oriented to person, Yes oriented to place and Yes oriented to time HENMT: COMMON NORMALS: normocephalic and atraumatic HEAD & SCALP: normocephalic and atraumatic Resp: AUSCULTATION: rhonchi and wheezes Cardio: COMMON NORMALS: regular rate, regular rhythm and No murmurs present (Cardio) RATE: regular rate RHYTHM: regular rhythm GI: COMMON NORMALS: Soft to palpation and No hepatosplenomegaly present AUSCULTATION: Yes normoactive bowel sounds PALPATION: Yes Soft to palpation, No Tenderness to palpation present (GI), No Guarding due to palpation present (GI) and Yes No hepatosplenomegaly present Extremity: COMMON NORMALS: normal to inspection, capillary refill normal, no clubbing, cyanosis or edema, no calf tenderness and no pedal edema Neuro: SENSORIUM/ORIENTATION: Yes oriented to person, Yes oriented to place and Yes oriented to time Skin: COMMON NORMALS: no rashes or lesions noted GENERAL SKIN EXAM: no rashes or lesions noted Course Vital Signs: Vital signs: Vital Signs Temperature 98.0 F 06/07/22 13:14 Pulse Rate 71 06/07/22 15:30 Respiratory Rate 15 06/07/22 14:48 Blood Pressure 163/86 06/07/22 15:30 Pulse Oximetry 99 06/07/22 15:30 Oxygen Delivery Me thod 06/07/22 14:48 MDM - SOB/Dyspnea Medical Decision Making Labs and imaging reviewed white counts actually improved. Chest x-ray is negative urine is negative cultures were done. Patient has not had a fever on oxygen sats have been good. I think some of her shortness of breath may be related to the metastasis she has from her lung cancer to her chest. She will be discharged home continue Levaquin she is previously prescribed follow-up with Dr. Hernandez next week return to the emergency room if she has any further problems. Medical Records I reviewed the patient's medical records. Lab Data I reviewed the patient's lab results. : 06/07/22 15:00 06/07/22 15:28 Labs/Radiology: Radiology Impressions Chest X-Ray 06/07/22 14:30 IMPRESSION: No obvious acute findings. Suboptimal lung base assessment. Followup including lateral view may be obtained if clinically indicated. Laboratory Results WBC 2.4 10^3/uL (4.0-10.0) L 06/07/22 15:00 RBC 3.10 10^6/uL (4.1-5.3) L 06/07/22 15:00 Hgb 10.5 g/dL (11.5-15.3) L 06/07/22 15:00 Hct 31.9 % (37.0-47.0) L 06/07/22 15:00 MCV 102.9 fl (81-99) H 06/07/22 15:00 MCH 33.9 pg (28.0-34.0) 06/07/22 15:00 MCHC 32.9 g/dL (30.0-36.0) 06/07/22 15:00 RDW 14.8 % (12.1-15.1) 06/07/22 15:00 Plt Count 173 10^3/cmm (130-400) 06/07/22 15:00 MPV 10.7 fL (7.4-10.4) H 06/07/22 15:00 Neut % (Auto) 48.0 % 06/07/22 15:00 Lymph % (Auto) 31.8 % 06/07/22 15:00 [place] % (Auto) 17.2 % 06/07/22 15:00 Eos % (Auto) 1.3 % 06/07/22 15:00 Baso % (Auto) 1.3 % 06/07/22 15:00 Neut # (Auto) 1.15 10^3/uL (1.8-7.7) L 06/07/22 15:00 Lymph # (Auto) 0.8 10^3/uL (0.8-4.8) 06/07/22 15:00 [place] # (Auto) 0.4 10^3/uL (0.2-0.9) 06/07/22 15:00 Eos # (Auto) 0.0 10^3/uL (0.0-0.8) 06/07/22 15:00 Baso # (Auto) 0.0 10^3/uL (0.0-0.1) 06/07/22 15:00 Nucleated RBC % (auto) 0 % 06/07/22 15:00 Nucleated RBCs # 0.0 /100WBC 06/07/22 15:00 Sodium 137 mmol/L (136-145) 06/07/22 15:28 Potassium 4.5 mmol/L (3.5-5.1) 06/07/22 15:28 Chloride 105 mmol/L (98-107) 06/07/22 15:28 Carbon Dioxide 21 mmol/L (22-29) L 06/07/22 15:28 Anion Gap 15.5 (5-19) 06/07/22 15:28 BUN 21 mg/dL (8-23) 06/07/22 15:28 Creatinine 1.1 mg/dL (0.5-0.9) H 06/07/22 15:28 GFR Calculation Not Reportable 06/07/22 15:28 Glucose 87 mg/dL (65-115) 06/07/22 15:28 Calculated Osmolality 286 mOsm/kg (285-295) 06/07/22 15:28 Calcium 8.6 mg/dL (8.5-10.5) 06/07/22 15:28 Total Bilirubin 0.3 mg/dL (0.15-1.2) 06/07/22 15:28 AST 31 U/L (0-32) 06/07/22 15:28 ALT 13 U/L (0-33) 06/07/22 15:28 Alkaline Phosphatase 84 U/L (35-105) 06/07/22 15:28 Total Protein 6.9 g/dL (6.6-8.7) 06/07/22 15:28 Albumin 3.4 g/dL (3.5-5.2) L 06/07/22 15:28 Globulin 3.5 g/dL (1.3-4.6) 06/07/22 15:28 Urine Color Straw (Yellow) 06/07/22 15:35 Urine Appearance Clear (CLEAR) 06/07/22 15:35 Urine pH 7 (5-7) 06/07/22 15:35 Ur Specific [place] 1.005 (1.005-1.030) 06/07/22 15:35 Urine Protein Neg (Negative) 06/07/22 15:35 Urine Glucose (UA) Norm (Normal) 06/07/22 15:35 Urine Ketones Negative (Negative) 06/07/22 15:35 Urine Blood Neg (Negative) 06/07/22 15:35 Urine Nitrate Negative (Negative) 06/07/22 15:35 Urine Bilirubin Neg (Negative) 06/07/22 15:35 Urine Urobilinogen Norm mg/dL (Negative) 06/07/22 15:35 Ur Leukocyte Esterase Negative (Negative) 06/07/22 15:35 Discharge Plan Discharge Patient Disposition: Home Clinical Impression: Dyspnea, Breast cancer metastasized to lung Condition: Stable Prescriptions: No Action acetaminophen [Tylenol] 325 mg capsule 325 mg PO QID PRN exemestane 25 mg tablet 25 mg PO DAILY Qty: 30 0RF Rx Instructions: must administer after a meal Kisqali 200 mg/day (200 mg x 1) tablet 600 mg PO DAILY Qty: 63 0RF Hold Instructions: Doctor's Order Rx Instructions: administer for 21 days; off 7 days per 28-day cycle levofloxacin 500 mg tablet 500 mg PO DAILY Qty: 7 0RF Discharge Orders: Discharge ED (Routine); Ordered 06/07/22 Ordered By: Sher Langford Referrals: Maciej Jaime [Primary Care Provider] - Discharge Diet: Usual diet Discharge Activity: Increase activity as tolerated Patient Instructions: Opioid Safety, Pain Management Activity Restrictions/Additional Instructions: Pleat the course of antibiotics you are previously prescribed. Follow-up with Dr. Hernandez early next week. Return to the emergency room if you have any further problems. Coding Level of Care Code ED Trench Digger for Mary Melendrez Exam Detailed
[2022-06-07 15:19] LABS: Basophils % 1.3 %; Eosinophils % 1.3 %; Hematocrit 31.9 % (37.0-47.0); Hemoglobin 10.5 g/dL (11.5-15.3); Lymphocytes # 0.8 10^3/uL (0.8-4.8); Lymphocytes % 31.8 %; Mean Corpuscular HGB Conc 32.9 g/dL (30.0-36.0); Mean Corpuscular Hemoglobin 33.9 pg (28.0-34.0); Mean Corpuscular Volume 102.9 fl (81-99); Mean Platelet Volume 10.7 fL (7.4-10.4); Monocytes # 0.4 10^3/uL (0.2-0.9); Monocytes % 17.2 %; Neutrophils # 1.15 10^3/uL (1.8-7.7); Nucleated Red Blood Cells % 0 %; Platelet Count 173 10^3/cmm (130-400); Red Cell Distribution Width 14.8 % (12.1-15.1); White Blood Count 2.4 10^3/uL (4.0-10.0)
[2022-06-07 15:30] VITALS: BP 163/86; PULSE 71; O2SAT 99
[2022-06-07 15:46] LABS: Add Urine Microscopic? NO; Charge for UA Resulting for Rev
[2022-06-07 15:54] LABS: Bilirubin Urine Neg (Negative); Blood Urine Neg (Negative); Glucose Urine UA Norm (Normal); Ketones Urine Negative (Negative); Leukocyte Esterase Urine Negative (Negative); Nitrate Urine Negative (Negative); Protein Urine Neg (Negative); Specific Gravity, Urine 1.005 (1.005-1.030); Urine Appearance Clear (CLEAR); Urine Color Straw (Yellow); Urobilinogen Urine Norm (Negative); pH Urine 7 (5-7)
[2022-06-07 16:14] LABS: Alanine Aminotransferase 13 U/L (0-33); Albumin Level 3.4 g/dL (3.5-5.2); Alkaline Phosphatase 84 U/L (35-105); Blood Urea Nitrogen 21 mg/dL (8-23); Calcium 8.6 mg/dL (8.5-10.5); Carbon Dioxide 21 mmol/L (22-29); Chloride 105 mmol/L (98-107); Globulin 3.5 g/dL (1.3-4.6); Glucose 87 mg/dL (65-115); Osmolality Calculated 286 mOsm/kg (285-295); Sodium 137 mmol/L (136-145); Total Bilirubin 0.3 mg/dL (0.15-1.2); Total Protein 6.9 g/dL (6.6-8.7)
[2022-06-07 16:27] LABS: Anion Gap 15.5 (5-19)
[2022-06-07 16:28] LABS: Aspartate Amino Transferase 31 U/L (0-32); Potassium 4.5 mmol/L (3.5-5.1)
[2022-06-07 16:47] VITALS: BP 139/86; PULSE 70
== END 2022-06-07 16:50 | disposition home or self-care (01) ==
PROVIDERS: Emergency Provider Family Medicine; PCP Family Medicine
DX: R06.00 Dyspnea, unspecified (principal); C50.919 Malignant neoplasm of unspecified site of unspecified female breast; C78.00 Secondary malignant neoplasm of unspecified lung
CPT/HCPCS: 71045; 80053; 81003; 85025; 87040; 93005; 99285

== ENCOUNTER 2022-06-11 11:40 | Oncology outpatient (recurring) (ONCR) | payer MEDICARE, MEDICAID, SELFPAY ==
[2022-06-09 12:56] LABS: Basophils % 1.5 %; Eosinophils % 1.1 %; Hematocrit 31.4 % (37.0-47.0); Hemoglobin 10.8 g/dL (11.5-15.3); Lymphocytes # 0.9 10^3/uL (0.8-4.8); Lymphocytes % 32.3 %; Mean Corpuscular HGB Conc 34.4 g/dL (30.0-36.0); Mean Corpuscular Hemoglobin 34.7 pg (28.0-34.0); Mean Platelet Volume 10.4 fL (7.4-10.4); Monocytes # 0.4 10^3/uL (0.2-0.9); Monocytes % 14.7 %; Neutrophils # 1.33 10^3/uL (1.8-7.7); Nucleated Red Blood Cells % 0 %; Platelet Count 172 10^3/cmm (130-400); Red Blood Count 3.11 10^6/uL (4.1-5.3); Red Cell Distribution Width 14.6 % (12.1-15.1); White Blood Count 2.7 10^3/uL (4.0-10.0)
[2022-06-09 14:33] LABS: LAB Peripheral Smear Sent for Review
[2022-06-11] MEDS: fulvestrant 250 mg/5 mL Syringe 500 MG IM (12:46)
== END 2022-06-16 23:59 | disposition home or self-care (01) ==
PROVIDERS: PCP Family Medicine; Visit Provider Internal Medicine Medical Oncology
DX: C50.511 Malignant neoplasm of lower-outer quadrant of right female breast (principal); Z79.818 Long term (current) use of other agents affecting estrogen receptors and estrogen levels; Z17.0 Estrogen receptor positive status [ER+]; C77.8 Secondary and unspecified malignant neoplasm of lymph nodes of multiple regions; D61.818 Other pancytopenia; Z79.899 Other long term (current) drug therapy; C50.919 Malignant neoplasm of unspecified site of unspecified female breast; C78.00 Secondary malignant neoplasm of unspecified lung; Z87.891 Personal history of nicotine dependence; Z79.811 Long term (current) use of aromatase inhibitors
CPT/HCPCS: 36415; 85025; 96402; 99214; J9395

== ENCOUNTER → 2022-06-25 12:52 | Outpatient (BNVA) | payer MEDICARE, MEDICAID, SELFPAY | PROVIDERS: PCP Family Medicine; Visit Provider Internal Medicine Medical Oncology | DX: C50.919 Malignant neoplasm of unspecified site of unspecified female breast (principal); C78.00 Secondary malignant neoplasm of unspecified lung; M85.80 Other specified disorders of bone density and structure, unspecified site | CPT/HCPCS: 85025 ==

== ENCOUNTER 2022-07-09 08:46 | Oncology outpatient (recurring) (ONCR) | payer MEDICARE, MEDICAID, SELFPAY ==
--- NOTE | 2022-06-21 22:15 | P.ANES_ITS ---
Anesthesia Procedures Procedure/Date: 06/21/22
--- NOTE | 2022-06-21 22:15 | ANES.PROC ---
Anesthesia Procedures Procedure/Date: 06/21/22
[2022-07-09 09:32] LABS: Basophils % 1.3 %; Hematocrit 32.3 % (37.0-47.0); Hemoglobin 10.6 g/dL (11.5-15.3); Lymphocytes # 0.6 10^3/uL (0.8-4.8); Lymphocytes % 41.1 %; Mean Corpuscular HGB Conc 32.8 g/dL (30.0-36.0); Mean Corpuscular Hemoglobin 34.2 pg (28.0-34.0); Mean Corpuscular Volume 104.2 fl (81-99); Mean Platelet Volume 10.9 fL (7.4-10.4); Monocytes # 0.2 10^3/uL (0.2-0.9); Monocytes % 15.9 %; Neutrophils % 39.7 %; Nucleated Red Blood Cells % 0 %; Platelet Count 84 10^3/cmm (130-400); Red Cell Distribution Width 15.1 % (12.1-15.1); White Blood Count 1.5 10^3/uL (4.0-10.0)
[2022-07-09] MEDS: fulvestrant 250 mg/5 mL Syringe 500 MG IM (10:16)
== END 2022-07-16 23:59 | disposition home or self-care (01) ==
PROVIDERS: PCP Family Medicine; Visit Provider Internal Medicine Medical Oncology
DX: C50.511 Malignant neoplasm of lower-outer quadrant of right female breast (principal); Z17.0 Estrogen receptor positive status [ER+]; C77.8 Secondary and unspecified malignant neoplasm of lymph nodes of multiple regions; D70.9 Neutropenia, unspecified; Z79.818 Long term (current) use of other agents affecting estrogen receptors and estrogen levels; Z79.899 Other long term (current) drug therapy; Z87.891 Personal history of nicotine dependence
CPT/HCPCS: 85025; 96401; 99214; J9395

== ENCOUNTER 2022-08-06 09:15 | Oncology outpatient (recurring) (ONCR) | payer MEDICARE, MEDICAID, SELFPAY ==
[2022-08-06 09:34] LABS: Basophils % 1.5 %; Hematocrit 34.2 % (37.0-47.0); Hemoglobin 11.3 g/dL (11.5-15.3); Lymphocytes # 0.6 10^3/uL (0.8-4.8); Lymphocytes % 30.7 %; Mean Corpuscular Volume 105.9 fl (81-99); Mean Platelet Volume 11.1 fL (7.4-10.4); Monocytes # 0.1 10^3/uL (0.2-0.9); Monocytes % 6.8 %; Neutrophils # 1.22 10^3/uL (1.8-7.7); Neutrophils % 59.5 %; Nucleated Red Blood Cells % 0 %; Platelet Count 93 10^3/cmm (130-400); Red Blood Count 3.23 10^6/uL (4.1-5.3); Red Cell Distribution Width 14.6 % (12.1-15.1); White Blood Count 2.1 10^3/uL (4.0-10.0)
[2022-08-06 09:57] LABS: Alanine Aminotransferase 101 U/L (0-33); Albumin Level 3.6 g/dL (3.5-5.2); Alkaline Phosphatase 91 U/L (35-105); Anion Gap 13.7 (5-19); Aspartate Amino Transferase 69 U/L (0-32); Blood Urea Nitrogen 21 mg/dL (8-23); Carbon Dioxide 25 mmol/L (22-29); Chloride 102 mmol/L (98-107); Globulin 4.2 g/dL (1.3-4.6); Glucose 93 mg/dL (65-115); Osmolality Calculated 285 mOsm/kg (285-295); Potassium 4.7 mmol/L (3.5-5.1); Sodium 136 mmol/L (136-145); Total Bilirubin 1.1 mg/dL (0.15-1.2); Total Protein 7.8 g/dL (6.6-8.7)
[2022-08-06] MEDS: fulvestrant 250 mg/5 mL Syringe 500 MG IM (11:10)
== END 2022-08-16 23:59 | disposition home or self-care (01) ==
LOC: ONCMED 09:15
PROVIDERS: PCP Family Medicine; Visit Provider Internal Medicine Medical Oncology
DX: C50.511 Malignant neoplasm of lower-outer quadrant of right female breast (principal); Z17.0 Estrogen receptor positive status [ER+]; Z79.818 Long term (current) use of other agents affecting estrogen receptors and estrogen levels
CPT/HCPCS: 36415; 80053; 85025; 96402; J9395

== ENCOUNTER 2022-09-18 12:47 | Oncology outpatient (recurring) (ONCR) | payer MEDICARE, MEDICAID, SELFPAY ==
[2022-09-18 13:36] LABS: Basophils % 1.1 %; Eosinophils % 1.1 %; Hematocrit 34.6 % (37.0-47.0); Hemoglobin 10.9 g/dL (11.5-15.3); Lymphocytes # 0.6 10^3/uL (0.8-4.8); Mean Corpuscular HGB Conc 31.5 g/dL (30.0-36.0); Mean Corpuscular Hemoglobin 34.5 pg (28.0-34.0); Mean Corpuscular Volume 109.5 fl (81-99); Mean Platelet Volume 10.4 fL (7.4-10.4); Monocytes # 0.2 10^3/uL (0.2-0.9); Monocytes % 8.2 %; Neutrophils % 54.6 %; Nucleated Red Blood Cells % 0 %; Platelet Count 68 10^3/cmm (130-400); Red Blood Count 3.16 10^6/uL (4.1-5.3); White Blood Count 1.8 10^3/uL (4.0-10.0)
[2022-09-18 13:49] LABS: Alanine Aminotransferase 292 U/L (0-33); Albumin Level 3.6 g/dL (3.5-5.2); Alkaline Phosphatase 112 U/L (35-105); Anion Gap 12.2 (5-19); Aspartate Amino Transferase 246 U/L (0-32); Blood Urea Nitrogen 26 mg/dL (8-23); Carbon Dioxide 26 mmol/L (22-29); Chloride 105 mmol/L (98-107); Globulin 4.3 g/dL (1.3-4.6); Glucose 95 mg/dL (65-115); Osmolality Calculated 293 mOsm/kg (285-295); Potassium 4.2 mmol/L (3.5-5.1); Sodium 139 mmol/L (136-145); Total Bilirubin 0.7 mg/dL (0.15-1.2); Total Protein 7.9 g/dL (6.6-8.7)
[2022-09-18] MEDS: fulvestrant 250 mg/5 mL Syringe 500 MG IM (14:49)
== END 2022-10-14 23:59 | disposition home or self-care (01) ==
PROVIDERS: PCP Family Medicine; Visit Provider Internal Medicine Medical Oncology
DX: C50.511 Malignant neoplasm of lower-outer quadrant of right female breast (principal); Z17.0 Estrogen receptor positive status [ER+]; C77.8 Secondary and unspecified malignant neoplasm of lymph nodes of multiple regions; D61.818 Other pancytopenia; D70.9 Neutropenia, unspecified; R74.01 Elevation of levels of liver transaminase levels; Z79.818 Long term (current) use of other agents affecting estrogen receptors and estrogen levels; Z79.899 Other long term (current) drug therapy; Z87.891 Personal history of nicotine dependence
CPT/HCPCS: 36415; 80053; 85025; 96402; 99214; J9395

== ENCOUNTER 2022-09-26 14:52 | Emergency (ER) | payer MEDICARE, MEDICAID, SELFPAY ==
[2022-09-26] VITALS (7 sets, daily range): BP systolic 125–160; BP diastolic 69–88; PULSE 70–91; RESP 18–27; TEMP 36.8; O2SAT 96–98
--- NOTE | 2022-09-26 15:01 | ECG_ITS ---
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 Measurements Intervals [place] Rate: 93 P: 56 OR: 140 QRS: -31 QRSD: 112 T: 116 QT: 361 QTc: 451 Interpretive Statements SINUS RHYTHM LEFT AXIS DEVIATION [QRS AXIS < -30] LEFT VENTRICULAR HYPERTROPHY AND ST-T CHANGE [VOLTAGE CRITERIA PLUS ST/T ABNORMALITY] POSSIBLE ANTERIOR MYOCARDIAL INFARCTION , OF INDETERMINATE AGE [30 ms Q WAVE IN V3/V4, OR R < 0.2 mV IN V4] Compared to ECG 06/07/2022 14:48:24 Left-axis deviation now present ST (T wave) deviation still present Myocardial infarct finding still present Electronically Signed On 09-26-2022 16:20:10 VIRTUAL RECRUITER by Lito Myles M.D. [id number] f
--- NOTE | 2022-09-26 15:01 | ECG_ITS ---
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 Measurements Intervals [place] Rate: 93 P: 56 SD: 140 QRS: -31 QRSD: 112 T: 116 QT: 361 QTc: 451 Interpretive Statements SINUS RHYTHM LEFT AXIS DEVIATION [QRS AXIS < -30] LEFT VENTRICULAR HYPERTROPHY AND ST-T CHANGE [VOLTAGE CRITERIA PLUS ST/T ABNORMALITY] POSSIBLE ANTERIOR MYOCARDIAL INFARCTION , OF INDETERMINATE AGE [30 ms Q WAVE IN V3/V4, OR R < 0.2 mV IN V4] Compared to ECG 06/07/2022 14:48:24 Left-axis deviation now present ST (T wave) deviation still present Myocardial infarct finding still present Electronically Signed On 09-26-2022 16:20:07 GEOTECHNICAL FIELD TECHNICIAN by Lito Myles M.D. [id number]
--- NOTE | 2022-09-26 15:07 | ED_ITS ---
HPI - Chest Pain General: Chief Complaint: Chest Pain Stated Complaint: Chest pain Time Seen by Provider: 09/26/22 14:59 Source: patient Mode of arrival: ambulatory Limitations: no limitations History of Present Illness: This patient presents by private vehicle to emergency department with 2-day history of intermittent chest pains. She states she has had associated nausea and diaphoresis with the chest pain. She denies any history of coronary artery disease. She is not a tobacco user. She states the pain has been predominantly in her anterior chest with minimal radiation to the right side. No ripping or tearing. No cough fever or other recent illness. She states that she took one 81 mg of aspirin prior to arrival and also used 1 or 2 sublingual nitroglycerin which helped her symptoms some. MD complaint: chest pain Prior episodes: No Onset: during rest Pain location: substernal Quality: aching and heaviness Relieving factors: nitroglycerin Associated symptoms: Reports dyspnea and nausea; Deny abdominal pain, fever(s), syncope or vomiting Review of Systems Const: Denies: fever(s) or chills ENMT: Denies: throat pain, odynophagia, nasal discharge or nasal congestion Card: Reports: chest pain; Denies: syncope or pre-syncope Resp: Reports: dyspnea; Denies: productive cough, non-productive cough, wheezing or stridor GI: Reports: nausea; Denies: abdominal pain, vomiting or diarrhea : Denies: flank pain, difficulty voiding, dysuria or urinary frequency Musc: Denies: back pain, extremity pain or extremity swelling Skin/Breast: Denies: rash or pruritus Neuro: Denies: headache(s), numbness in extremities or weakness in extremities Sylvester/Lymph: Denies: easy bruising or easy bleeding PFSH ED PFSH: Medical History Anemia Chronic kidney disease History of hepatitis History of drug-induced hepatitis, 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 Hypertension Metastatic breast cancer 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 Osteopenia Surgical History History of appendectomy History of lumpectomy of right breast (2012) Right breast lumpectomy with axillary sentinel lymph node biopsy History of lymph node biopsy (01/28/22) Right axillary lymph node biopsy Family History Sister Cancer Sister had breast cancer Other Diabetes Hypertension Denies family history of CAD (coronary artery disease) Clotting disorder Dementia Hyperlipidemia Psychiatric illness Chronic kidney disease (CKD) Suicide Anesthesia complication Bleeding disorder Lung disease Stroke Social History Smoking and tobacco status: former smoker (smoked from age 18 to age 60) Quit status (tobacco): has quit using tobacco Year quit tobacco: 12 to 15 years ago Alcohol intake: never Household members: family Marital status: / Physical Exam Narrative: EXAM NARRATIVE: She appears slightly anxious but is able to answer questions in a goal-directed fashion. Const: COMMON NORMALS: average body habitus, patient oriented x3, healthy appearing and alert GENERAL APPEARANCE: anxious HENMT: COMMON NORMALS: normocephalic, Normal nasal mucous membranes and turbinates present, moist oral mucous membranes and oropharynx normal HEAD & SCALP: normocephalic NOSE: Normal nasal mucous membranes and turbinates present Eye: COMMON NORMALS: Equal, round and reactive pupils present, EOMs intact bilaterally and conjunctivae normal CONJUNCTIVA: Yes conjunctivae normal PUPIL: Yes Equal, round and reactive pupils present Neck/C-Spine: COMMON NORMALS: full ROM, no JVD, Thyroid normal and No carotid bruits THYROID: Thyroid normal Chest: COMMONS NORMALS: normal inspection of the chest OTHER: Anterior chest wall tenderness to palpation. No skin changes, no ecchymosis, no subcutaneous emphysema. Resp: COMMON NORMALS: normal respiratory effort, No retractions and clear to auscultation bilaterally AUSCULTATION: clear to auscultation bilaterally Cardio: COMMON NORMALS: no JVD, regular rate, regular rhythm, No murmurs present (Cardio) and Peripheral pulses 2+ throughout RATE: regular rate RHYTHM: regular rhythm PERIPHERAL PULSES: Peripheral pulses 2+ throughout GI: COMMON NORMALS: Normal to inspection, nondistended, normoactive bowel sounds present, Soft to palpation and non-tender PALPATION: Yes Soft to palpation : COMMON NORMALS: Yes no CVA tenderness BLADDER/KIDNEY EXAM: Yes no CVA tenderness Back/Pelvis: COMMON NORMALS: no CVA tenderness, thoracic and lumbar spine normal to inspection, no thoracic nor lumbar tenderness and thoraco-lumbar ROM normal Extremity: COMMON NORMALS: normal to inspection, full ROM, no clubbing, cyanosis or edema, no calf tenderness and no pedal edema Neuro: COMMON NORMALS: patient oriented x3, moves all extremities, no focal motor deficits and no sensory deficits noted SENSORIUM/ORIENTATION: Yes alert Psych: COMMON NORMALS: mental status grossly normal, Normal thought process present and cooperative THOUGHT PROCESS: Normal thought process present Skin: COMMON NORMALS: no rashes or lesions noted, no wounds and turgor normal GENERAL SKIN EXAM: no rashes or lesions noted and turgor normal Course Reevaluation(s): Reevaluation #1: Patient remains comfortable. She denies any pain or ongoing symptoms at this time. Serial troponin and serial electrocardiograms do not reveal any acute changes in her delta troponin is negative thereby making unlikely or less likely that she has ongoing ACS at this time. Given her presentation and her elevation in BNP in the emergency department I think it is reasonable for us to place her on a course of diuretic and have her follow-up with her primary care in the next 2 weeks to reassess her. She is quite anxious to go home and I feel that this reasonable choice at this time. Transaminases are elevated as noted in Dr. Hernandez's note which are likely attributable to her chemotherapeutic agent. Nothing at this time to suggest biliary tract disease. Her total bili, alk phos are normal. Time: 19:06 Consultations: Consultation #1: EKG was sent to Dr. Myles whitewater rafting guide on-call who at the time of the initial EKG did not feel it represented an acute IN or other concerning EKG pattern. Vital Signs: Vital signs: Vital Signs Temperature 98.3 F 09/26/22 14:57 Pulse Rate 70 09/26/22 18:30 Respiratory Rate 24 H 09/26/22 18:30 Blood Pressure 125/69 09/26/22 18:30 Pulse Oximetry 97 09/26/22 18:30 Oxygen Delivery Me thod 09/26/22 17:30 MDM - Chest Pain Medical Decision Making Patient with a history ofMetastatic breast cancer being followed by oncology who presented with chest pain symptoms without fever, hypoxia, tachycardia, other concerning findings. Serial EKGs did not reveal any acute changes from prior EKGs. Serial troponins were reassuring. She had no ongoing symptoms. She did have a significant BNP elevation with some mild crackles on physical exam suggestive of possible mild fluid and/or pulmonary congestion so therefore she was begun on 2-week course of Lasix. She desired to be discharged in the emergency department and certainly is reasonable to do so given her reassuring findings this evening. We discussed expected course and follow-up with patient as well as her accompanying family. They voiced understanding. Stable for discharge at this time. Medical Records I reviewed the patient's medical records. Negative sestamibi stress test in 2019. Oncology has attributed her increase in her liver tests to one of her chemotherapeutic agents which is being held now. Lab Data I reviewed the patient's lab results. 09/26/22 15:17 09/26/22 15:17 Radiology Impressions Chest X-Ray 09/26/22 15:08 IMPRESSION: Stable chest without acute abnormality. Laboratory Results WBC 2.6 10^3/uL (4.0-10.0) L 09/26/22 15:17 RBC 3.36 10^6/uL (4.1-5.3) L 09/26/22 15:17 Hgb 12.1 g/dL (11.5-15.3) 09/26/22 15:17 Hct 36.4 % (37.0-47.0) L 09/26/22 15:17 MCV 108.3 fl (81-99) H 09/26/22 15:17 MCH 36.0 pg (28.0-34.0) H 09/26/22 15:17 MCHC 33.2 g/dL (30.0-36.0) 09/26/22 15:17 RDW 14.5 % (12.1-15.1) 09/26/22 15:17 Plt Count 67 10^3/cmm (130-400) L 09/26/22 15:17 MPV 10.9 fL (7.4-10.4) H 09/26/22 15:17 Neut % (Auto) 59.1 % 09/26/22 15:17 Lymph % (Auto) 19.9 % 09/26/22 15:17 Hudspeth % (Auto) 18.8 % 09/26/22 15:17 Eos % (Auto) 1.1 % 09/26/22 15:17 Baso % (Auto) 1.1 % 09/26/22 15:17 Neut # (Auto) 1.54 10^3/uL (1.8-7.7) L 09/26/22 15:17 Lymph # (Auto) 0.5 10^3/uL (0.8-4.8) L 09/26/22 15:17 Hudspeth # (Auto) 0.5 10^3/uL (0.2-0.9) 09/26/22 15:17 Eos # (Auto) 0.0 10^3/uL (0.0-0.8) 09/26/22 15:17 Baso # (Auto) 0.0 10^3/uL (0.0-0.1) 09/26/22 15:17 Nucleated RBC % (auto) 0 % 09/26/22 15:17 Nucleated RBCs # 0.0 /100WBC 09/26/22 15:17 Sodium 137 mmol/L (136-145) 09/26/22 15:17 Potassium 4.2 mmol/L (3.5-5.1) 09/26/22 15:17 Chloride 102 mmol/L (98-107) 09/26/22 15:17 Carbon Dioxide 24 mmol/L (22-29) 09/26/22 15:17 Anion Gap 15.2 (5-19) 09/26/22 15:17 BUN 12 mg/dL (8-23) 09/26/22 15:17 Creatinine 1.1 mg/dL (0.5-0.9) H 09/26/22 15:17 GFR Calculation Not Reportable 09/26/22 15:17 Glucose 133 mg/dL (65-115) H 09/26/22 15:17 Calculated Osmolality 286 mOsm/kg (285-295) 09/26/22 15:17 Calcium 8.5 mg/dL (8.5-10.5) 09/26/22 15:17 Total Bilirubin 0.7 mg/dL (0.15-1.2) 09/26/22 15:17 AST 133 U/L (0-32) H 09/26/22 15:17 ALT 170 U/L (0-33) H 09/26/22 15:17 Alkaline Phosphatase 122 U/L (35-105) H 09/26/22 15:17 Troponin T Baseline 12 ng/L (0-10) H 09/26/22 15:17 Troponin T 120 Minute 9.85 ng/L (0-10) 09/26/22 17:30 Delta Troponin T -2.15 ABS# (0-10) L 09/26/22 17:30 NT-Pro-B Natriuret Pep 1456 pg/mL (0-450) H 09/26/22 15:17 Total Protein 7.9 g/dL (6.6-8.7) 09/26/22 15:17 Albumin 3.7 g/dL (3.5-5.2) 09/26/22 15:17 Globulin 4.2 g/dL (1.3-4.6) 09/26/22 15:17 EKG Data EKG 1: I personally reviewed and interpreted this EKG as follows: Interpretation: Resting EKG reveals ventricular rate of 93 bpm. Normal AK, QRS duration, corrected QT interval. Borderline leftward axis. ST changes are noted in the anterior precordial leads with some slight ST elevations noted in V1 and V2. She also has some ST depressions in V5 and V6. Compared with prior tracings this is unchanged. Computer generated interpretation: Possible ischemic ST changes. Normal sinus rhythm. EKG 2: I personally reviewed and interpreted this EKG as follows: Interpretation: Contemporaneous review of EKG reveals sinus rhythm at 83 bpm. She has normal intervals to include AK QRS duration corrected QT interval. She has a borderline leftward axis. She has ST segments which are unchanged from previous EKGs as well as a previous EKG this visit. No acute ST-T wave changes. Discharge Plan Discharge Patient Disposition: Home Clinical Impression: Chest pain, Pulmonary congestion, Metastatic breast cancer Condition: Stable Prescriptions: New furosemide [Lasix] 40 mg tablet 40 mg PO DAILY PRN (Reason: pulmonary congestion) 14 Days Qty: 14 0RF potassium chloride 10 mEq capsule, extended release 10 meq PO DAILY Qty: 14 0RF No Action Kisqali 200 mg/day (200 mg x 1) tablet 400 mg PO DAILY Qty: 42 12RF Rx Instructions: ON HOLD SINCE 09/08/22 PER PT administer for 21 days; off 7 days per 28-day cycle trazodone 50 mg tablet 50 mg PO BEDTIME Rx Instructions: ON HOLD SINCE 09/08/22 PER PT omeprazole 40 mg capsule,delayed release(DR/EC) 40 mg PO DAILY Rx Instructions: ON HOLD SINCE 09/08/22 PER PT ondansetron 4 mg tablet,disintegrating 4 mg PO Q4H PRN (Reason: Nausea And Vomiting) Rx Instructions: ON HOLD SINCE 09/08/22 PER PT levocetirizine 5 mg tablet 5 mg PO DAILY Rx Instructions: ON HOLD SINCE 09/08/22 PER PT Discharge Orders: Discharge ED (Routine); Ordered 09/26/22 Ordered By: Giovanny Galaviz Referrals: Maciej Jaime [Primary Care Provider] - Discharge Diet: Low Salt Discharge Activity: Increase activity as tolerated Patient Instructions: Opioid Safety, Pain Management Activity Restrictions/Additional Instructions: We have prescribed a fluid pill as well as a potassium pill to help with your fluid retention. Take this daily for the next 2 weeks. Call your primary care doctor to arrange a follow-up in the next 10 to 14 days to be reevaluated. If it anytime you have worsening symptoms return to this or the nearest emergency department. Follow-up with Dr. Hernandez next month as scheduled. Coding Level of Care Code ED Interstate Planner for Mary Melendrez
--- NOTE | 2022-09-26 15:08 | XR_ITS ---
WS: [id number] XR chest 1V portable [id number] REASON FOR EXAM: cp FINDINGS: Moderate tortuosity the thoracic aorta without aneurysmal dilatation. Normal heart size. Calcified granulomatous disease in both hemithoraces. No acute pulmonary parenchymal or pleural disease is identified. Small metallic spherical foreign body overlying the right upper lung field. The chest is unchanged compared to previous examination of 06/07/2022. XR/XR chest 1V portable [id number] IMPRESSION: Stable chest without acute abnormality.
[2022-09-26] MEDS: aspirin 81 mg Chew Tablet 324 MG PO (15:18)
[2022-09-26 15:24] LABS: Basophils % 1.1 %; Eosinophils % 1.1 %; Hematocrit 36.4 % (37.0-47.0); Hemoglobin 12.1 g/dL (11.5-15.3); Lymphocytes # 0.5 10^3/uL (0.8-4.8); Lymphocytes % 19.9 %; Mean Corpuscular HGB Conc 33.2 g/dL (30.0-36.0); Mean Corpuscular Volume 108.3 fl (81-99); Mean Platelet Volume 10.9 fL (7.4-10.4); Monocytes # 0.5 10^3/uL (0.2-0.9); Monocytes % 18.8 %; Neutrophils # 1.54 10^3/uL (1.8-7.7); Neutrophils % 59.1 %; Nucleated Red Blood Cells % 0 %; Platelet Count 67 10^3/cmm (130-400); Red Blood Count 3.36 10^6/uL (4.1-5.3); Red Cell Distribution Width 14.5 % (12.1-15.1); White Blood Count 2.6 10^3/uL (4.0-10.0)
--- NOTE | 2022-09-26 15:32 | PC.PHAR ---
PT STATES SHE IS TAKING NO RX OR OTC MEDICATIONS-PT STATES DR BORJAS PUT ALL OF HER MEDS ON HOLD OF 09/08/22-PT STATES SHE STOP TAKING ALL HER VITAMINS 09/08/22
[2022-09-26 15:45] LABS: Troponin(5th) Baseline 12 ng/L (0-10)
[2022-09-26 15:52] LABS: Alanine Aminotransferase 170 U/L (0-33); Albumin Level 3.7 g/dL (3.5-5.2); Alkaline Phosphatase 122 U/L (35-105); Anion Gap 15.2 (5-19); Aspartate Amino Transferase 133 U/L (0-32); Blood Urea Nitrogen 12 mg/dL (8-23); Calcium 8.5 mg/dL (8.5-10.5); Carbon Dioxide 24 mmol/L (22-29); Chloride 102 mmol/L (98-107); Globulin 4.2 g/dL (1.3-4.6); Glucose 133 mg/dL (65-115); NT Pro B Type Natriuretic Pept 1456 pg/mL (0-450); Osmolality Calculated 286 mOsm/kg (285-295); Potassium 4.2 mmol/L (3.5-5.1); Sodium 137 mmol/L (136-145); Total Bilirubin 0.7 mg/dL (0.15-1.2); Total Protein 7.9 g/dL (6.6-8.7)
[2022-09-26] MEDS: nitroglycerin 0.4 mg sublingual Tablet SUBLINGUAL (17:06)
--- NOTE | 2022-09-26 17:07 | PC.NURSE ---
pt reports chest pain returned. rates pain /. physician notified. nitro given
--- NOTE | 2022-09-26 17:10 | ECG_ITS ---
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 Measurements Intervals [place] Rate: 83 P: 51 [place]: 144 QRS: -34 QRSD: 108 T: 100 QT: 369 QTc: 435 Interpretive Statements SINUS RHYTHM LEFT AXIS DEVIATION [QRS AXIS < -30] MODERATE VOLTAGE CRITERIA FOR LVH, CONSIDER NORMAL VARIANT [MEETS CRITERIA IN ONE OF: R(aVL), S(V1), R(V5), R(V5/V6)+S(V1)] POSSIBLE ANTERIOR MYOCARDIAL INFARCTION , OF INDETERMINATE AGE [30 ms Q WAVE IN V3/V4, OR R < 0.2 mV IN V4] MODERATE T-WAVE ABNORMALITY, CONSIDER LATERAL ISCHEMIA [-0.1+ mV T-WAVE IN I/aVL/V5/V6] Compared to ECG 09/26/2022 15:01:07 T-wave abnormality now present ST (T wave) deviation no longer present Myocardial infarct finding still present Electronically Signed On 09-26-2022 21:57:57 IT HELP DESK TECHNICIAN by Jose Willis M.D. [id number]
[2022-09-26] MEDS: FUROsemide 10 mg/mL SDV 4mL 40 MG IVP (18:10)
[2022-09-26 18:15] LABS: Troponin 5 2HR 9.85 ng/L (0-10)
[2022-09-26 18:37] LABS: Troponin 5 2HR Delta -2.15 ABS# (0-10)
== END 2022-09-26 19:30 | disposition home or self-care (01) ==
PROVIDERS: Emergency Provider Emergency Medicine; PCP Family Medicine
DX: R07.9 Chest pain, unspecified (principal); R09.89 Other specified symptoms and signs involving the circulatory and respiratory systems; C50.919 Malignant neoplasm of unspecified site of unspecified female breast; Z87.891 Personal history of nicotine dependence; I12.9 Hypertensive chronic kidney disease with stage 1 through stage 4 chronic kidney disease, or unspecified chronic kidney disease; N18.9 Chronic kidney disease, unspecified
CPT/HCPCS: 71045; 80053; 83880; 84484; 85025; 93005; 96374; 99285; J1940

== ENCOUNTER 2022-10-16 12:13 | Oncology outpatient (recurring) (ONCR) | payer MEDICARE, MEDICAID, SELFPAY ==
[2022-10-16 12:58] LABS: Basophils % 0.9 %; Eosinophils # 0.1 10^3/uL (0.0-0.8); Eosinophils % 1.9 %; Hematocrit 34.9 % (37.0-47.0); Hemoglobin 11.3 g/dL (11.5-15.3); Lymphocytes # 0.9 10^3/uL (0.8-4.8); Lymphocytes % 19.7 %; Mean Corpuscular HGB Conc 32.4 g/dL (30.0-36.0); Mean Corpuscular Hemoglobin 34.9 pg (28.0-34.0); Mean Corpuscular Volume 107.7 fl (81-99); Mean Platelet Volume 11.4 fL (7.4-10.4); Monocytes # 0.5 10^3/uL (0.2-0.9); Monocytes % 11.6 %; Neutrophils # 2.84 10^3/uL (1.8-7.7); Neutrophils % 65.7 %; Nucleated Red Blood Cells % 0 %; Platelet Count 167 10^3/cmm (130-400); Red Blood Count 3.24 10^6/uL (4.1-5.3); Red Cell Distribution Width 13.4 % (12.1-15.1); White Blood Count 4.3 10^3/uL (4.0-10.0)
[2022-10-16 13:20] LABS: Alanine Aminotransferase 470 U/L (0-33); Albumin Level 3.9 g/dL (3.5-5.2); Alkaline Phosphatase 142 U/L (35-105); Anion Gap 15.9 (5-19); Aspartate Amino Transferase 604 U/L (0-32); Blood Urea Nitrogen 48 mg/dL (8-23); Calcium 9.2 mg/dL (8.5-10.5); Carbon Dioxide 27 mmol/L (22-29); Chloride 100 mmol/L (98-107); Globulin 4.5 g/dL (1.3-4.6); Glucose 98 mg/dL (65-115); Osmolality Calculated 301 mOsm/kg (285-295); Potassium 3.9 mmol/L (3.5-5.1); Sodium 139 mmol/L (136-145); Total Protein 8.4 g/dL (6.6-8.7)
--- NOTE | 2022-10-16 15:00 | US_ITS ---
WS: [id number] ULTRASOUND ABDOMEN LIMITED CLINICAL INFORMATION: elevated liver enzymes COMPARISON: None. FINDINGS: Liver Size: Liver appears enlarged Craniocaudal length: 14.3 cm. Echogenicity: Coarse Surface nodularity: None. Mass (size and location): None. Bile ducts Intrahepatic ducts: Normal. Common bile duct diameter: 0.3 cm. Gallbladder Normal. Gallstones: None. Gallbladder sludge: None. Gallbladder wall thickening: None. Pericholecystic fluid: None. Sonographic Middleton sign: Absent. Pancreas Normal as visualized. Right kidney: Atrophic RIGHT kidney Hydronephrosis: None. Size: 7.7 cm x 4.1 cm x 3.7 cm. Abdominal aorta and IVC Visualized portions are normal. Ascites: None. US/US liver [id number] IMPRESSION: 1. Liver appears enlarged. Coarse hepatic echo texture likely due to fatty inf iltration. No significant intrahepatic biliary ductal dilatation. 2. Normal gallbladder. No cholelithiasis. 3. Normal common bile duct. 4. Atrophic RIGHT kidney. No hydronephrosis.
== END 2022-11-14 23:59 | disposition home or self-care (01) ==
PROVIDERS: PCP Family Medicine; Visit Provider Internal Medicine Medical Oncology
DX: C50.511 Malignant neoplasm of lower-outer quadrant of right female breast (principal); Z17.0 Estrogen receptor positive status [ER+]; C77.8 Secondary and unspecified malignant neoplasm of lymph nodes of multiple regions; D61.818 Other pancytopenia; D70.9 Neutropenia, unspecified; R74.01 Elevation of levels of liver transaminase levels; Z79.818 Long term (current) use of other agents affecting estrogen receptors and estrogen levels; Z79.899 Other long term (current) drug therapy; Z87.891 Personal history of nicotine dependence
CPT/HCPCS: 36415; 76705; 80053; 85025; 99214

== ENCOUNTER 2022-11-25 13:26 | Oncology outpatient (recurring) (ONCR) | payer MEDICARE, MEDICAID, SELFPAY ==
[2022-11-25 14:59] LABS: Basophils % 0.9 %; Eosinophils # 0.1 10^3/uL (0.0-0.8); Eosinophils % 2.2 %; Hematocrit 38.4 % (37.0-47.0); Hemoglobin 12.3 g/dL (11.5-15.3); Lymphocytes # 1.4 10^3/uL (0.8-4.8); Mean Corpuscular Hemoglobin 33.9 pg (28.0-34.0); Mean Corpuscular Volume 105.8 fl (81-99); Mean Platelet Volume 10.9 fL (7.4-10.4); Monocytes # 0.5 10^3/uL (0.2-0.9); Monocytes % 11.4 %; Neutrophils # 2.57 10^3/uL (1.8-7.7); Neutrophils % 55.5 %; Nucleated Red Blood Cells % 0 %; Platelet Count 91 10^3/cmm (130-400); Red Blood Count 3.63 10^6/uL (4.1-5.3); Red Cell Distribution Width 12.4 % (12.1-15.1); White Blood Count 4.6 10^3/uL (4.0-10.0)
[2022-11-25 15:18] LABS: Alanine Aminotransferase 66 U/L (0-33); Albumin Level 3.8 g/dL (3.5-5.2); Alkaline Phosphatase 88 U/L (35-105); Aspartate Amino Transferase 69 U/L (0-32); Blood Urea Nitrogen 16 mg/dL (8-23); Calcium 8.7 mg/dL (8.5-10.5); Carbon Dioxide 24 mmol/L (22-29); Chloride 102 mmol/L (98-107); Glucose 80 mg/dL (65-115); Osmolality Calculated 286 mOsm/kg (285-295); Sodium 138 mmol/L (136-145); Total Bilirubin 0.6 mg/dL (0.15-1.2); Total Protein 7.8 g/dL (6.6-8.7)
[2022-11-25 15:20] LABS: Anion Gap 17.1 (5-19); Potassium 5.1 mmol/L (3.5-5.1)
[2022-11-25] MEDS: fulvestrant 250 mg/5 mL Syringe 500 MG IM (15:57)
[2022-11-25 16:00] VITALS: RESP 18; TEMP 36.4; O2SAT 98
== END 2022-12-14 23:59 | disposition home or self-care (01) ==
PROVIDERS: PCP Family Medicine; Visit Provider Internal Medicine Medical Oncology
DX: C50.511 Malignant neoplasm of lower-outer quadrant of right female breast (principal); Z17.0 Estrogen receptor positive status [ER+]; C77.8 Secondary and unspecified malignant neoplasm of lymph nodes of multiple regions; D61.818 Other pancytopenia; D70.9 Neutropenia, unspecified; R74.01 Elevation of levels of liver transaminase levels; Z79.818 Long term (current) use of other agents affecting estrogen receptors and estrogen levels; Z79.899 Other long term (current) drug therapy; Z87.891 Personal history of nicotine dependence
CPT/HCPCS: 36415; 80053; 85025; 96401; 99214; J9395

== ENCOUNTER 2022-12-23 11:35 | Oncology outpatient (recurring) (ONCR) | payer MEDICARE, MEDICAID, SELFPAY ==
[2022-12-23 12:22] LABS: Basophils % 0.7 %; Eosinophils # 0.1 10^3/uL (0.0-0.8); Eosinophils % 2.4 %; Hematocrit 37.1 % (37.0-47.0); Lymphocytes # 1.4 10^3/uL (0.8-4.8); Lymphocytes % 31.8 %; Mean Corpuscular HGB Conc 32.3 g/dL (30.0-36.0); Mean Corpuscular Hemoglobin 33.9 pg (28.0-34.0); Mean Corpuscular Volume 104.8 fl (81-99); Mean Platelet Volume 10.3 fL (7.4-10.4); Monocytes # 0.5 10^3/uL (0.2-0.9); Monocytes % 11.3 %; Neutrophils # 2.41 10^3/uL (1.8-7.7); Neutrophils % 53.6 %; Nucleated Red Blood Cells % 0 %; Platelet Count 113 10^3/cmm (130-400); Red Blood Count 3.54 10^6/uL (4.1-5.3); White Blood Count 4.5 10^3/uL (4.0-10.0)
[2022-12-23 12:42] LABS: Alanine Aminotransferase 35 U/L (0-33); Albumin Level 3.8 g/dL (3.5-5.2); Alkaline Phosphatase 79 U/L (35-105); Anion Gap 12.4 (5-19); Aspartate Amino Transferase 48 U/L (0-32); Blood Urea Nitrogen 28 mg/dL (8-23); Calcium 8.8 mg/dL (8.5-10.5); Carbon Dioxide 25 mmol/L (22-29); Chloride 102 mmol/L (98-107); Globulin 3.8 g/dL (1.3-4.6); Glucose 76 mg/dL (65-115); Osmolality Calculated 284 mOsm/kg (285-295); Potassium 4.4 mmol/L (3.5-5.1); Sodium 135 mmol/L (136-145); Total Bilirubin 0.6 mg/dL (0.15-1.2); Total Protein 7.6 g/dL (6.6-8.7)
[2022-12-23] MEDS: fulvestrant 250 mg/5 mL Syringe 500 MG IM (13:58)
== END 2023-01-14 23:59 | disposition home or self-care (01) ==
PROVIDERS: PCP Family Medicine; Visit Provider Internal Medicine Medical Oncology
DX: C50.511 Malignant neoplasm of lower-outer quadrant of right female breast (principal); Z17.0 Estrogen receptor positive status [ER+]; C77.8 Secondary and unspecified malignant neoplasm of lymph nodes of multiple regions; R74.01 Elevation of levels of liver transaminase levels; Z79.818 Long term (current) use of other agents affecting estrogen receptors and estrogen levels; Z79.899 Other long term (current) drug therapy; Z87.891 Personal history of nicotine dependence
CPT/HCPCS: 36415; 80053; 85025; 99214; J9395

== ENCOUNTER → 2022-12-23 11:35 | Outpatient (BNVA) | payer MEDICARE, MEDICAID, SELFPAY | PROVIDERS: PCP Family Medicine; Visit Provider Internal Medicine Medical Oncology | DX: C50.511 Malignant neoplasm of lower-outer quadrant of right female breast (principal) | CPT/HCPCS: 99214 ==

== ENCOUNTER 2023-01-20 12:58 | Oncology outpatient (recurring) (ONCR) | payer MEDICARE, MEDICAID, SELFPAY ==
[2023-01-20] MEDS: fulvestrant 250 mg/5 mL Syringe 500 MG IM (13:07)
[2023-01-20 13:13] VITALS: BP 128/75; PULSE 85; TEMP 36.4; O2SAT 98
== END 2023-02-13 23:59 | disposition home or self-care (01) ==
PROVIDERS: PCP Family Medicine; Visit Provider Internal Medicine Medical Oncology
DX: C50.511 Malignant neoplasm of lower-outer quadrant of right female breast (principal)
CPT/HCPCS: 96401; J9395

== ENCOUNTER 2023-02-18 13:03 | Oncology outpatient (recurring) (ONCR) | payer MEDICARE, MEDICAID, SELFPAY ==
[2023-02-18 13:13] VITALS: BP 160/90; PULSE 72; RESP 16; TEMP 36.7; O2SAT 97
[2023-02-18] MEDS: fulvestrant 250 mg/5 mL Syringe 500 MG IM (13:41)
[2023-02-18 13:50] VITALS: BP 160/90; PULSE 70; RESP 16; TEMP 36.7; O2SAT 98
== END 2023-03-16 23:59 | disposition home or self-care (01) ==
LOC: ONCMED 13:03
PROVIDERS: PCP Family Medicine; Visit Provider Internal Medicine Medical Oncology
DX: C50.511 Malignant neoplasm of lower-outer quadrant of right female breast (principal)
CPT/HCPCS: 96372; 96402; J9395

== ENCOUNTER 2023-03-01 14:30 | Emergency (ER) | payer MEDICARE, MEDICAID, SELFPAY ==
[2023-03-01] VITALS (8 sets, daily range): BP systolic 146–178; BP diastolic 68–92; PULSE 53–63; RESP 16–18; TEMP 36.7; O2SAT 90–100
--- NOTE | 2023-03-01 14:43 | XRR_ITS ---
PROCEDURE INFORMATION: Exam: XR Chest Exam date and time: 03/01/2023 2:52 PM Age: 77 years old Clinical indication: Pain; Chest pressure; Additional info: Chest pain.No history of trauma or recent surgery is provided. TECHNIQUE: Imaging protocol: Radiologic exam of the chest. 1image(s) are provided. Views: 1 view. COMPARISON: 1. CR XR chest 1V portable [id number] 09/26/2022 3:20 PM 2. CR XR chest 1V portable [id number] 06/07/2022 3:44 PM FINDINGS: Lungs: There is some mild chronic air trapping appearance overall.There is some similar subsegmental atelectasis versus post inflammatory reticulonodular scarring demonstrated. There are some granulomatous type calcification present. No lobar consolidation is appreciated. Pleural spaces: No pneumothorax or pleural effusion is appreciated. Heart/Mediastinum: The cardiomediastinal silhouette is upper normal in size.This can be seen with central averaging as well as rina enlargement.No cardiac decompensation is appreciated. Diaphragm: The hemidiaphragms are symmetric. Bones/joints: There is a chronic deformity of the right clavicle similar overall. Osseous alignment is maintained.No interval displaced fracture or dislocation is appreciated. There are some chronic appearing rib deformities present similar overall. There is some costochondral averaging. Soft tissues: There is a rounded metallic density similar overall about the right upper anterior chest wall. No radiopaque foreign body or subcutaneous emphysema is otherwise appreciated. Other findings: No significant interval changes are appreciated. XR/XR chest 1V portable [id number] IMPRESSION: No lobar consolidation is appreciated.No interval acute cardiopulmonary changes are appreciated.
[2023-03-01] MEDS: morphine 4 mg/mL SDV 1 mL IVP (15:12)
[2023-03-01] MEDS: ondansetron 2 mg/ML SDV 2 mL 4 MG IVP (15:13)
[2023-03-01] MEDS: nitroglycerin 1 gm/inch oint Pkt 0.5 INCH TOPICAL (15:13)
--- NOTE | 2023-03-01 15:30 | ECG_ITS ---
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 Measurements Intervals [place] Rate: 54 P: 46 TN: 153 QRS: -23 QRSD: 113 T: 3 QT: 449 QTc: 429 Interpretive Statements SINUS BRADYCARDIA LEFT VENTRICULAR HYPERTROPHY AND ST-T CHANGE [VOLTAGE CRITERIA PLUS ST/T ABNORMALITY] Compared to ECG 09/26/2022 17:10:15 ST (T wave) deviation now present Sinus rhythm no longer present Left-axis deviation no longer present Myocardial infarct finding no longer present T-wave abnormality no longer present Possible ischemia no longer present Electronically Signed On 03-01-2023 21:03:25 CDT by Myrna Hsieh M.D. [id number] f
[2023-03-01 15:37] LABS: Basophils % 0.7 %; Eosinophils # 0.1 10^3/uL (0.0-0.8); Eosinophils % 2.8 %; Hematocrit 33.9 % (37.0-47.0); Hemoglobin 10.9 g/dL (11.5-15.3); Lymphocytes # 1.2 10^3/uL (0.8-4.8); Lymphocytes % 27.9 %; Mean Corpuscular HGB Conc 32.2 g/dL (30.0-36.0); Mean Corpuscular Hemoglobin 34.1 pg (28.0-34.0); Mean Corpuscular Volume 105.9 fl (81-99); Mean Platelet Volume 10.8 fL (7.4-10.4); Monocytes # 0.4 10^3/uL (0.2-0.9); Neutrophils # 2.52 10^3/uL (1.8-7.7); Neutrophils % 59.6 %; Nucleated Red Blood Cells % 0 %; Platelet Count 102 10^3/cmm (130-400); Red Cell Distribution Width 12.9 % (12.1-15.1); White Blood Count 4.2 10^3/uL (4.0-10.0)
[2023-03-01 16:01] LABS: Alanine Aminotransferase 19 U/L (0-33); Albumin Level 3.8 g/dL (3.5-5.2); Alkaline Phosphatase 73 U/L (35-105); Anion Gap 10.6 (5-19); Aspartate Amino Transferase 39 U/L (0-32); Blood Urea Nitrogen 14 mg/dL (8-23); Calcium 8.9 mg/dL (8.5-10.5); Carbon Dioxide 28 mmol/L (22-29); Chloride 104 mmol/L (98-107); Globulin 3.3 g/dL (1.3-4.6); Glucose 78 mg/dL (65-115); Osmolality Calculated 285 mOsm/kg (285-295); Potassium 4.6 mmol/L (3.5-5.1); Sodium 138 mmol/L (136-145); Total Bilirubin 0.5 mg/dL (0.15-1.2); Total Protein 7.1 g/dL (6.6-8.7)
[2023-03-01 16:02] LABS: Troponin(5th) Baseline 12 ng/L (0-10)
--- NOTE | 2023-03-01 17:01 | PC.PHAR ---
Addendum entered by Ml Bolden 03/01/23 17:07: pt states she has an albuterol inhaler and uses prn ext doesnt show when last filled Original Note: pt states she takes care of her own medications-pt states she is no longer taking kisqali states not taken for 6 months pt states she goes to the dr to get 2 shots once a month to help keep cancer away pt unsure drs name-pt states she doesnt take famotidine 20mg bid filled 11/26/22 90d/s or omeprazole 40mg daily-notes are made in the pharmacy comments
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
--- NOTE | 2023-03-01 17:16 | ECG_ITS ---
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 Measurements Intervals [place] Rate: 50 P: 42 WA: 159 QRS: -46 QRSD: 112 T: 25 QT: 503 QTc: 460 Interpretive Statements SINUS BRADYCARDIA LEFT AXIS DEVIATION [QRS AXIS < -30] MODERATE INTRAVENTRICULAR CONDUCTION DELAY [105+ ms QRS DURATION, 80+ ms Q/S IN V1/V2, NO Q AND 60+ ms R IN I/aVL/V5/V6] NONSPECIFIC ST & T-WAVE ABNORMALITY PROLONGED QT INTERVAL Compared to ECG 03/01/2023 15:30:06 Left-axis deviation now present Intraventricular conduction delay now present T-wave abnormality now present.Prolonged QT interval now present Left ventricular hypertrophy no longer present ST (T wave) deviation no longer present Electronically Signed On 03-02-2023 21:41:41 CDT by Myrna Hsieh M.D. [email or web address]
[2023-03-01 17:58] LABS: Troponin 5 2HR 9.25 ng/L (0-10)
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
--- NOTE | 2023-03-01 18:36 | ECG_ITS ---
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 Measurements Intervals [place] Rate: 55 P: 62 AL: 158 QRS: -13 QRSD: 110 T: -32 QT: 461 QTc: 441 Interpretive Statements SINUS BRADYCARDIA WITH OCCASIONAL SUPRAVENTRICULAR PREMATURE COMPLEXES SEPTAL MYOCARDIAL INFARCTION , OF INDETERMINATE AGE [40+ ms Q WAVE IN V1/V2] Compared to ECG 03/01/2023 17:16:11 Myocardial infarct finding now present Left-axis deviation no longer present Intraventricular conduction delay no longer present T-wave abnormality no longer present Prolonged QT interval no longer present Electronically Signed On 03-02-2023 21:42:11 CDT by Myrna Hsieh M.D. [id number]
[2023-03-01 18:56] LABS: Troponin 5 2HR Delta -2.75 ABS# (0-10)
== END 2023-03-01 19:48 | disposition home or self-care (01) ==
PROVIDERS: Emergency Provider Family Medicine; PCP Family Medicine
DX: R07.89 Other chest pain (principal); Z87.891 Personal history of nicotine dependence; I12.9 Hypertensive chronic kidney disease with stage 1 through stage 4 chronic kidney disease, or unspecified chronic kidney disease; N18.9 Chronic kidney disease, unspecified; Z85.3 Personal history of malignant neoplasm of breast
CPT/HCPCS: 36415; 71045; 80053; 84484; 85025; 93005; 96374; 96375; 99285; 99291; J2270; J2405

== ENCOUNTER 2023-03-18 13:52 | Oncology outpatient (recurring) (ONCR) | payer MEDICARE, MEDICAID, SELFPAY ==
[2023-03-18] MEDS: fulvestrant 250 mg/5 mL Syringe 500 MG IM (15:26)
== END 2023-04-16 23:59 | disposition home or self-care (01) ==
LOC: ONCMED 13:53
PROVIDERS: PCP Family Medicine; Visit Provider Internal Medicine Medical Oncology
DX: C50.511 Malignant neoplasm of lower-outer quadrant of right female breast (principal)
CPT/HCPCS: 96402; J9395

== ENCOUNTER 2023-03-28 05:51 | Outpatient (CLI) | payer MEDICARE, MEDICAID, SELFPAY ==
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
== END 2023-03-28 05:52 | disposition home or self-care (01) ==
LOC: RAD 03-30 05:51
PROVIDERS: PCP Family Medicine; Visit Provider Internal Medicine Medical Oncology
DX: C50.511 Malignant neoplasm of lower-outer quadrant of right female breast (principal); C77.8 Secondary and unspecified malignant neoplasm of lymph nodes of multiple regions
CPT/HCPCS: 78815; 99214; A9552

== ENCOUNTER 2023-05-12 09:46 | Oncology outpatient (recurring) (ONCR) | payer MEDICARE, MEDICAID, SELFPAY ==
[2023-05-12 10:22] LABS: Basophils % 0.7 %; Eosinophils # 0.1 10^3/uL (0.0-0.8); Eosinophils % 1.7 %; Hematocrit 36.9 % (36-47); Lymphocytes # 1.6 10^3/uL (0.8-4.8); Mean Corpuscular HGB Conc 32.8 g/dL (30-55); Mean Corpuscular Hemoglobin 33.9 pg (27-33); Mean Corpuscular Volume 103.4 fl (85-98); Mean Platelet Volume 10.7 fL (7.4-10.4); Monocytes # 0.6 10^3/uL (0.2-0.9); Monocytes % 9.7 %; Neutrophils # 3.48 10^3/uL (1.8-7.7); Neutrophils % 60.6 %; Nucleated Red Blood Cells % 0 %; Platelet Count 129 10^3/cmm (157-399); Red Blood Count 3.57 10^6/uL (3.85-5.65); Red Cell Distribution Width 13.2 % (12.1-15.1); White Blood Count 5.75 10^3/uL (3.29-11.43)
[2023-05-12 10:39] LABS: Alanine Aminotransferase 14 U/L (0-33); Albumin Level 3.8 g/dL (3.5-5.2); Alkaline Phosphatase 73 U/L (35-105); Anion Gap 13.7 (5-19); Aspartate Amino Transferase 24 U/L (0-32); Blood Urea Nitrogen 26 mg/dL (8-23); Calcium 8.6 mg/dL (8.5-10.5); Carbon Dioxide 25 mmol/L (22-29); Chloride 105 mmol/L (98-107); Globulin 3.3 g/dL (1.3-4.6); Glucose 78 mg/dL (65-115); Osmolality Calculated 292 mOsm/kg (285-295); Potassium 4.7 mmol/L (3.5-5.1); Sodium 139 mmol/L (136-145); Total Bilirubin 0.5 mg/dL (0.15-1.2); Total Protein 7.1 g/dL (6.6-8.7)
[2023-05-12] MEDS: fulvestrant 250 mg/5 mL Syringe 500 MG IM (11:43)
== END 2023-05-16 23:59 | disposition home or self-care (01) ==
PROVIDERS: PCP Family Medicine; Visit Provider Internal Medicine Medical Oncology
DX: C50.511 Malignant neoplasm of lower-outer quadrant of right female breast (principal); C77.8 Secondary and unspecified malignant neoplasm of lymph nodes of multiple regions; Z17.0 Estrogen receptor positive status [ER+]; Z87.891 Personal history of nicotine dependence
CPT/HCPCS: 36415; 80053; 85025; 99214; J9395

== ENCOUNTER 2023-06-09 13:34 | Oncology outpatient (recurring) (ONCR) | payer MEDICARE, MEDICAID, SELFPAY ==
[2023-06-09] MEDS: fulvestrant 250 mg/5 mL Syringe 500 MG IM (13:55)
[2023-06-09 14:02] VITALS: BP 138/81; PULSE 68; RESP 18; TEMP 35.6; O2SAT 98
== END 2023-06-16 23:59 | disposition home or self-care (01) ==
LOC: ONCMED 13:34
PROVIDERS: PCP Family Medicine; Visit Provider Internal Medicine Medical Oncology
DX: C50.511 Malignant neoplasm of lower-outer quadrant of right female breast (principal)
CPT/HCPCS: 96402; J9395

== ENCOUNTER → 2023-06-28 14:54 | Outpatient (BNVA) | payer MEDICARE, MEDICAID, SELFPAY | PROVIDERS: PCP Family Medicine; Visit Provider Emergency Medicine | DX: M17.11 Unilateral primary osteoarthritis, right knee (principal); M25.561 Pain in right knee | CPT/HCPCS: 73562 ==

== ENCOUNTER 2023-07-07 13:53 | Oncology outpatient (recurring) (ONCR) | payer MEDICARE, MEDICAID, SELFPAY ==
[2023-07-07 14:02] VITALS: BP 163/90; PULSE 82; RESP 18; TEMP 36.6; O2SAT 99
[2023-07-07] MEDS: fulvestrant 250 mg/5 mL Syringe 500 MG IM (14:29)
[2023-07-07 14:45] VITALS: BP 147/89; PULSE 74; RESP 18; TEMP 36.6; O2SAT 98
== END 2023-07-16 23:59 | disposition home or self-care (01) ==
LOC: ONCMED 13:54
PROVIDERS: PCP Family Medicine; Visit Provider Internal Medicine Medical Oncology
DX: C50.511 Malignant neoplasm of lower-outer quadrant of right female breast (principal); D61.818 Other pancytopenia
CPT/HCPCS: 96402; J9395